=== PATIENT | female | born 1930 | race Caucasian/White ===

== ENCOUNTER 2017-05-03 13:38 | Inpatient (IN) ==
[~2017-05-03 13:38] MED LIST: *HR* Atropine Sulfate 1 MG/10 ML SYRINGE IV ONE; *HR* EPINEPHrine 1 MG/10 ML SYRINGE IVP ONE; *HR* Etomidate 20 MG/10 ML AMPUL IVP ONE; *HR* Norepinephrine 4 MG/4 ML VIAL IVC ONE; *HR* Rocuronium Bromide 100 MG/10 ML VIAL IVC ONE
[2017-05-03 14:28] LABS: Basophils # 0.1 K/mcL (0.0-0.2); Basophils % 0.6 %; Eosinophils % 0.1 %; Hematocrit 40.7 % (35.3-44.9); Immature Granulocytes % 1.1 % (0-4); Lymphocytes # 1.6 K/mcL (0.6-4.6); Lymphocytes % 16.1 %; Mean Corpuscular HGB Conc 31.9 g/dL (31.6-35.5); Mean Corpuscular Hemoglobin 28.7 pg (28.0-33.3); Mean Corpuscular Volume 89.8 fL (83.0-100.0); Mean Platelet Volume 10.5 fL (9.4-12.4); Monocytes # 0.7 K/mcL (0.0-1.3); Monocytes % 7.6 %; Neutrophils # 7.2 K/mcL (1.6-8.9); Platelet Count 171 K/mcL (140-400); Red Blood Count 4.53 M/mcL (3.82-4.97); Red Cell Distribution Width 14.6 % (11.5-14.5); Segmented Neutrophils % 74.5 %
[2017-05-03] MEDS ORDERED: Propofol 500 MG/50 ML INFUS..BTL ONE (14:31)
[2017-05-03] MEDS ORDERED: 0.9 % Sodium Chloride 1,000 ML ONE (14:38)
[2017-05-03 14:40] LABS: Calcium 8.3 mg/dL (8.6-10.3); Potassium 4.2 mEq/L (3.5-5.1)
[2017-05-03 14:47] LABS: ABG Base Excess -10 mEq/L (-2 to 3); ABG HCO3 20 mEq/L (21-27); ABG Oxygen Saturation 90 % (95-98); ABG PCO2 59 mmHg (35-45); ABG PH 7.13 pH Units (7.32-7.45); ABG PO2 77 mmHg (85-104); ABG TCO2 21 mEq/L (20-26)
--- NOTE | 2017-05-03 14:53 | Emergency Department Note ---
Disposition Clinical Impression: Respiratory distress, Hypoxia, NSTEMI (non-ST elevated myocardial infarction), Elevated brain natriuretic peptide (BNP) level Pulmonary edema Qualifiers: Chronicity: acute Qualified Code(s): J81.0 - Acute pulmonary edema Community acquired pneumonia Qualifiers: Laterality: unspecified laterality Qualified Code(s): J18.9 - Pneumonia, unspecified organism Disposition: Admitted As Inpatient Condition: Serious SOB HPI - General Chief Complaint: ED Shortness of Breath/Dyspnea Stated Complaint: respiratory distress Time Seen by Provider: 05/03/17 13:45 Source: EMS Mode of arrival: EMS Limitations: altered mental status Nursing Notes Reviewed: Yes Vital Signs Reviewed: Yes - History of Present Illness 86-year-old female known medical history presents to the ER with a chief complaint of respiratory distress. From EMS is that she has been short of breath for 2 days. She was recently out of town visiting with family. Upon arrival by EMS the patient was noted to be hypoxic at 68%. She was placed on a nonrebreather but did not improve. At the time of arrival she had received 2 DuoNeb treatments and was 71%. The patient would not answer her name but would not follow any commands or answering other questions. She was noted to be hypoxic here on a nonrebreather as well. Patient intubated for hypoxia and altered mental status. Pt Subjective Complaint: shortness of breath Onset (ago): day(s) Context: recent illness Severity: severe Consistency/Duration: constant Treatment prior to arrival: oxygen, bronchodilator Cough present: No Sputum production: No Sputum Amount: None - Related Data Home oxygen amount: none Home Medications Medication Instructions Recorded Confirmed Mildred-3/Dha/Epa/Fish Oil [Fish Oil 1,000 mg PO DAILY 05/03/17 05/03/17 1,000 mg Softgel] Allergies Allergy/AdvReac Type Severity Reaction Status Date / Time NSAIDS (Non-Steroidal Allergy Mild See Verified 05/03/17 14:27 Anti-Inflamma Comments bacitracin [From Cortisporin] Allergy See Verified 05/03/17 14:27 Comments ciprofloxacin Allergy See Verified 05/03/17 14:27 Comments clindamycin Allergy See Verified 05/03/17 14:27 Comments codeine Allergy See Verified 05/03/17 14:27 Comments dexamethasone [From Ciprodex] Allergy See Verified 05/03/17 14:27 Comments doxycycline Allergy See Verified 05/03/17 14:27 Comments fluticasone [From Flonase] Allergy See Verified 05/03/17 14:27 Comments hydrocortisone Allergy See Verified 05/03/17 14:27 [From Cortisporin] Comments meperidine [From Demerol] Allergy See Verified 05/03/17 14:27 Comments Neomycin [From Cortisporin] Allergy See Verified 05/03/17 14:27 Comments polymyxin B Allergy See Verified 05/03/17 14:27 [From Cortisporin] Comments Sulfa (Sulfonamide Allergy See Verified 05/03/17 14:27 Antibiotics) Comments arthritis medications Allergy See Uncoded 05/03/17 14:27 Comments Limitations: ROS unobtainable due to patients medical condition Past Medical History - Past Medical History Attestation: Yes The following information was validated with the patient. Source: patient Medical history: Reports: arthritis - Social History Smoking Status: Unknown if ever smoked Physical Exam - General Limitations: altered mental status General appearance: obtunded - Head Head exam: atraumatic, normocephalic - Eye Eye exam: Present: normal appearance - ENT ENT exam: normal exam - Neck Neck exam: Present: normal inspection - Chest Chest inspection: Present: normal inspection, symmetric chest wall rise - Respiratory Respiratory exam: Present: respiratory distress, other (Diffuse rales on exam) - Cardiovascular Cardiovascular exam: Present: normal rhythm, tachycardia, normal heart sounds - Abdominal Exam Abdominal exam: Present: soft, Non-Tender. Absent: tenderness, distention, rigidity - Extremities Exam Extremities exam: Present: normal inspection - Expanded Upper Extremity Exam Shoulder exam: Present: normal inspection Arm exam: Present: normal inspection Elbow exam: Present: normal inspection Forearm/Wrist exam: Present: normal inspection Hand exam: Present: normal inspection - Expanded Lower Extremity Exam Hip/Pelvis exam: Present: normal inspection Upper leg exam: Present: normal inspection Knee exam: Present: normal inspection Lower leg exam: Present: normal inspection Ankle exam: Present: normal inspection Foot/toe exam: Present: normal inspection - Neurological Exam Neurological exam: Present: other (GCS 3. Does not follow commands. Opens eyes spontaneously. ) - Skin Skin exam: Present: warm Course Course Narrative: Patient seen and examined upon arrival. Noted to be in respiratory distress and hypoxic. She was intubated due to altered mental status and hypoxia. Please see note for details. We will obtain an EKG, chest x-ray as well as labs including troponin. - Reevaluation(s) Reevaluation #1: Patient was noted to be tachycardic in the 150s here. Patient was synchronized cardioversion x 2 without any change in rhythm. Patient also with amiodarone and started on drip. We will discuss with cardiology. Reevaluation #2: Patient had central line placement due to incompatibility of multiple medications that she required. Consent was obtained from her son. - Consultations Consultation #1: I spoke with the on-call tube former operator Dr. Charles. He reports that it appears to be sinus tachycardia with bundle branch block. Consultation #2: I spoke again with Dr. Charles. Patient's troponin of 0.19. He recommends to obtain a CT scan of the head prior to heparinization and to also give 60 or 80 mg of Lasix. Vital Signs Temperature 99.0 F 05/03/17 13:39 Pulse Rate 121 05/03/17 13:39 Respiratory Rate 8 05/03/17 13:39 Blood Pressure 131/87 05/03/17 13:39 O2 Sat by Pulse Oximetry 81 05/03/17 13:39 Temperature 97.8 F 05/04/17 19:11 Pulse Rate 73 05/04/17 21:00 Respiratory Rate 22 05/04/17 21:39 Blood Pressure 117/68 05/04/17 21:39 O2 Sat by Pulse Oximetry 100 05/04/17 21:39 Oxygen Delivery Oxygen Delivery Ventilator Procedures - Central Line Placement Right IJ Central Line Inserted*: Yes Central Line Insertion: elective Consent Obtained: written consent Procedural Pause: verify patient name and date of , timeout performed per policy, assemble equipment and verify supplies, perform hand hygiene Patient Placed on Monitor/Pulse Ox: Yes During the Procedure: clinician is wearing sterile gloves, cap, mask,& gown during insertion, sterile field and sterile technique are maintained, patient's face is covered with drape or mask and wearing a cap, everyone in room is wearing a mask Central Line Prep: Chlorhexidine scrub Prep the Procedure Site: apply chloraprep to the skin using a back and forth scrubbing motion, apply chloraprep for 30 seconds (upper body), 1-2 min ( femoral sites), allow prep to dry, drape the patient with a full body drape Ultrasound Used for Placement: Yes Central Line Lumen Inserted: triple Post Procedure: sutured in place, good blood return, all ports aspirated, flushed, capped, sterile dressing applied, guide wire removed and visualized Post Procedure X-Ray: tip of catheter in good position, no pneumothorax seen Patient Tolerated Procedure: well Complications: none - Intubation Time out performed: No sedative: Etomidate Mg Given: 20 paralytic: Rocuronium Mg Given: 100 Laryngoscope: Iain ET Tube Size: 7.5 ET Tube Uncuffed: No Tube Secured Depth (cm): 22 Tube Secured Location: lips Tube Placement Confirmation: visualized tube passing through cords, equal breath sounds bilaterally, no breath sounds over epigastrium, confirmation by capnometry Patient Tolerated Procedure: well Intubation Complications: none Shortness of Breath/Dyspnea - MDM Narrative Medical decision making narrative: 86-year-old female presents to the ER in respiratory distress. Noted to be hypoxic on arrival 70% on a nonrebreather. She was alert but was not following commands. She remained hypoxic with noninvasive management. Patient was intubated for hypoxia and altered mental status. Family reports she had been sick for 2 days. She was noted to be sinus tachycardia with a bundle branch block. EKG was discussed with cardiology who recommended diuresis. Troponin also noted to be 0.19. CT scan of the head negative and started on heparin. Tap Out Operator was also consulted. CT negative for pulmonary embolism however there is multifocal consolidation of pulmonary edema versus infectious etiology. Patient was covered with vancomycin and Zosyn and Levaquin. Also diuresed with Lasix 80 mg. Admitted to the tow truck dispatcher service in critical but stable condition. - Lab Data Lab results reviewed: Yes I reviewed the patient's lab results. Result diagrams: 05/04/17 04:11 05/04/17 04:11 Lab Results 05/03/17 05/03/17 05/03/17 Range/Units 14:12 14:19 14:19 WBC 9.7 (4.3-11.1) K/mcL RBC 4.53 (3.82-4.97) M/mcL Hgb 13.0 (11.5-15.4) g/dL Hct 40.7 (35.3-44.9) % MCV 89.8 (83.0-100.0) fL MCH 28.7 (28.0-33.3) pg MCHC 31.9 (31.6-35.5) g/dL RDW 14.6 H (11.5-14.5) % Plt Count 171 (140-400) K/mcL MPV 10.5 (9.4-12.4) fL Immature Gran % 1.1 (0-4) % Seg Neutrophils % 74.5 % Lymphocytes % 16.1 % Monocytes % 7.6 % Eosinophils % 0.1 % Basophils % 0.6 % Neutrophils # 7.2 (1.6-8.9) K/mcL Lymphocytes # 1.6 (0.6-4.6) K/mcL Monocytes # 0.7 (0.0-1.3) K/mcL Eosinophils # 0.0 (0.0-0.6) K/mcL Basophils # 0.1 (0.0-0.2) K/mcL PT 13.4 H (9.4-12.1) Seconds INR 1.2 APTT 28.5 (26.0-36.0) Seconds ABG pH (7.32-7.45) pH Units ABG pCO2 (35-45) mmHg ABG pO2 (85-104) mmHg ABG HCO3 (21-27) mEq/L ABG Total CO2 (20-26) mEq/L ABG O2 Saturation (95-98) % ABG Base Excess (-2 to 3) mEq/L Sodium 132 L (136-145) mEq/L Potassium 4.2 (3.5-5.1) mEq/L Chloride 100 (98-107) mEq/L Carbon Dioxide 22 L (23-29) mEq/L BUN 21 (8-23) mg/dL Creatinine 1.18 (0.60-1.20) mg/dL Est GFR ( Amer) 53 L (> 60) Est GFR (Non-Af Amer) 43 L (> 60) BUN/Creatinine Ratio 18 (6-26) Glucose 223 H (70-105) mg/dL Calculated Osmolality 284 (280-300) Lactic Acid (0.5-2.2) mmol/L Calcium 8.3 L (8.6-10.3) mg/dL Magnesium 2.0 (1.6-2.6) mg/dL Troponin I (< 0.04) ng/mL B-Natriuretic Peptide (Less than 100) pg/mL TSH 6.115 H (0.340-5.600) mcIU/mL Urine Color (Yellow) Urine Clarity (Clear) Urine pH (5.0-8.0) pH Units Ur Specific Bryant (1.010-1.025) Urine Protein (Neg-Trace) mg/dL Urine Glucose (UA) (Normal) mg/dL Urine Ketones (Negative) mg/dL Urine Blood (Negative) Urine Nitrite (Negative) Urine Bilirubin (Negative) Urine Urobilinogen (Normal) mg/dL Ur Leukocyte Esterase (Negative) Urine Microscopic RBC (0-3) per hpf Urine Microscopic WBC (0-3) per hpf Ur Squamous Epith Cells (None-Few) per lpf Urine Bacteria (None-Few) per hpf Hyaline Casts (None-Few) per lpf Ur Culture Indicated? (NO) Person Notif of Crit 05/03/17 05/03/17 05/03/17 Range/Units 14:19 14:19 14:19 WBC (4.3-11.1) K/mcL RBC (3.82-4.97) M/mcL Hgb (11.5-15.4) g/dL Hct (35.3-44.9) % MCV (83.0-100.0) fL MCH (28.0-33.3) pg MCHC (31.6-35.5) g/dL RDW (11.5-14.5) % Plt Count (140-400) K/mcL MPV (9.4-12.4) fL Immature Gran % (0-4) % Seg Neutrophils % % Lymphocytes % % Monocytes % % Eosinophils % % Basophils % % Neutrophils # (1.6-8.9) K/mcL Lymphocytes # (0.6-4.6) K/mcL Monocytes # (0.0-1.3) K/mcL Eosinophils # (0.0-0.6) K/mcL Basophils # (0.0-0.2) K/mcL PT (9.4-12.1) Seconds INR APTT (26.0-36.0) Seconds ABG pH (7.32-7.45) pH Units ABG pCO2 (35-45) mmHg ABG pO2 (85-104) mmHg ABG HCO3 (21-27) mEq/L ABG Total CO2 (20-26) mEq/L ABG O2 Saturation (95-98) % ABG Base Excess (-2 to 3) mEq/L Sodium (136-145) mEq/L Potassium (3.5-5.1) mEq/L Chloride (98-107) mEq/L Carbon Dioxide (23-29) mEq/L BUN (8-23) mg/dL Creatinine (0.60-1.20) mg/dL Est GFR ( Amer) (> 60) Est GFR (Non-Af Amer) (> 60) BUN/Creatinine Ratio (6-26) Glucose (70-105) mg/dL Calculated Osmolality (280-300) Lactic Acid 4.6 H* (0.5-2.2) mmol/L Calcium (8.6-10.3) mg/dL Magnesium (1.6-2.6) mg/dL Troponin I 0.19 H* (< 0.04) ng/mL B-Natriuretic Peptide 4486 H (Less than 100) pg/mL TSH (0.340-5.600) mcIU/mL Urine Color (Yellow) Urine Clarity (Clear) Urine pH (5.0-8.0) pH Units Ur Specific Bryant (1.010-1.025) Urine Protein (Neg-Trace) mg/dL Urine Glucose (UA) (Normal) mg/dL Urine Ketones (Negative) mg/dL Urine Blood (Negative) Urine Nitrite (Negative) Urine Bilirubin (Negative) Urine Urobilinogen (Normal) mg/dL Ur Leukocyte Esterase (Negative) Urine Microscopic RBC (0-3) per hpf Urine Microscopic WBC (0-3) per hpf Ur Squamous Epith Cells (None-Few) per lpf Urine Bacteria (None-Few) per hpf Hyaline Casts (None-Few) per lpf Ur Culture Indicated? (NO) Person Notif of Crit 05/03/17 05/03/17 05/03/17 Range/Units 14:42 15:12 16:50 WBC (4.3-11.1) K/mcL RBC (3.82-4.97) M/mcL Hgb (11.5-15.4) g/dL Hct (35.3-44.9) % MCV (83.0-100.0) fL MCH (28.0-33.3) pg MCHC (31.6-35.5) g/dL RDW (11.5-14.5) % Plt Count (140-400) K/mcL MPV (9.4-12.4) fL Immature Gran % (0-4) % Seg Neutrophils % % Lymphocytes % % Monocytes % % Eosinophils % % Basophils % % Neutrophils # (1.6-8.9) K/mcL Lymphocytes # (0.6-4.6) K/mcL Monocytes # (0.0-1.3) K/mcL Eosinophils # (0.0-0.6) K/mcL Basophils # (0.0-0.2) K/mcL PT (9.4-12.1) Seconds INR APTT (26.0-36.0) Seconds ABG pH 7.13 L* 7.19 L* (7.32-7.45) pH Units ABG pCO2 59 H 59 H (35-45) mmHg ABG pO2 77 L 65 L (85-104) mmHg ABG HCO3 20 L 23 (21-27) mEq/L ABG Total CO2 21 24 (20-26) mEq/L ABG O2 Saturation 90 L 87 L (95-98) % ABG Base Excess -10 L -6 L (-2 to 3) mEq/L Sodium (136-145) mEq/L Potassium (3.5-5.1) mEq/L Chloride (98-107) mEq/L Carbon Dioxide (23-29) mEq/L BUN (8-23) mg/dL Creatinine (0.60-1.20) mg/dL Est GFR ( Amer) (> 60) Est GFR (Non-Af Amer) (> 60) BUN/Creatinine Ratio (6-26) Glucose (70-105) mg/dL Calculated Osmolality (280-300) Lactic Acid (0.5-2.2) mmol/L Calcium (8.6-10.3) mg/dL Magnesium (1.6-2.6) mg/dL Troponin I (< 0.04) ng/mL B-Natriuretic Peptide (Less than 100) pg/mL TSH (0.340-5.600) mcIU/mL Urine Color Yellow (Yellow) Urine Clarity Turbid A (Clear) Urine pH 6.0 (5.0-8.0) pH Units Ur Specific Bryant 1.021 (1.010-1.025) Urine Protein 100 H (Neg-Trace) mg/dL Urine Glucose (UA) Normal (Normal) mg/dL Urine Ketones Negative (Negative) mg/dL Urine Blood Large H (Negative) Urine Nitrite Negative (Negative) Urine Bilirubin Negative (Negative) Urine Urobilinogen Normal (Normal) mg/dL Ur Leukocyte Esterase Moderate H (Negative) Urine Microscopic RBC 30-50 H (0-3) per hpf Urine Microscopic WBC TNTC H (0-3) per hpf Ur Squamous Epith Cells Many H (None-Few) per lpf Urine Bacteria Many H (None-Few) per hpf Hyaline Casts None Seen (None-Few) per lpf Ur Culture Indicated? NO (NO) Person Notif of Baldemar MCMAHAN - Radiology Data Radiology results reviewed: Yes I reviewed the patient's radiology results. Head CT 05/03/17 14:56 IMPRESSION: No acute intracranial abnormality. D/ / Dominguez Cabrera MD / Dominguez Cabrera MD Interpreting Provider: Dominguez Cabrera MD Chest CTA 05/03/17 15:12 IMPRESSION: 1. No evidence of pulmonary embolic disease. 2. Consolidation within the lower lobes as well as the dependent right upper lobe. Suspected pulmonary edema within the right upper lobe and left perihilar upper lobe. Bilateral pleural effusions. Differential considerations include CHF, ARDS, pulmonary hemorrhage or pneumonia. 3. Cardiomegaly with marked enlargement of the left atrium and ventricle. D/ 05/03/2017 16:00:38 Roe Girard MD / [facility] Interpreting Provider: Roe Girard MD Chest X-Ray 05/04/17 06:00 IMPRESSION: Improving bilateral pneumonia. D/ / Gavino Monroy MD / Gavino Monroy MD Interpreting Provider: Gavino Monroy MD - EKG Data EKG attestation: Yes I reviewed and interpreted this EKG. EKG results narrative: EKG demonstrates sinus tachycardia with left bundle branch block with a rate of 140s. Left axis deviation. Nonspecific ST-T wave changes in the inferior and lateral leads. No gross ST elevations or depressions. No acute ischemic findings. Critical Care Time Critical Care Time: Yes Total Critical Care Time: 60 Attestation: I examined this patient and my medical decision-making was reviewed with the Resident Physician, Dr. Ann. I agree with the documented findings, disposition and treatment plan as described except to the extent set forth below. Pt is an 86 yo wf, brought in by EMS in resp failure to the ED. Pt received aerosols x 2 and on NRB mask/100%FiO2 on arrival. Pt hypoxic in the 70's, with incr work of breathing and verbally unresponsive. GCS=3 on arrival, and made plans to immediately intubate pt. Pt with gurgling respirations, and auscultation of lungs with b/l rhonchi. No additional hx due to altered MS, and no relatives on arrival to ED. I agree with PE findings as documented. Pt in extremis on arrival, and required immediate intubation. Please see procedure note for details. Pt intubated without complication, ETT placement verified and PCXR obtained for placement. Pt with low O2 sats after intubation, no PTX on CXR, but shows diffuse pulm edema, and suspicious for RUL infiltrate. Pt requiring frequent suctioning of fluids from ETT following placement. Labs pending, EKG shows BBB pattern with tachycardia. Old EKG shows BBB, so not new finding. Pt became increasingly tachycardic, and unresponsive despite no immediate IV sedation. HR 160's-170's. Decided due to unstable condition we would attempt cardioversion. Pt cardioverted x 2 with minimal response with HR into 120-130's which was only transient. Initiated amiodarone gtt. BP remained stable throughout. Son arrived to ED, and per son, declined any significant heart hx, no prior CHF , no hx lung ds, and no URI/cough sxs at home over past 2 days. Only report was that she was "not feeling well", with dec activity and nausea. Pt then suddenly with worsening SOB over past few hours prior to calling 911. At this time, son wants everything done, full code confirmed. Explained critical status and admission to ICU. Pt with elev trop in setting of DEN, provided ASA, lasix and heparin (after neg head CT), obtained sepsis workup as well, but held IVF due to pulm edema and b/ l pleural effusions. Lactate elev. Blood cultures obtained and empiric antibx initiated for possible pulm infection. Difficult to determine course of events leading to such critical presenting status. Central R IJ placed during course of care to accomodate multiple meds IV, consent provided by son. Please see proc note, placement confirmed with CXR, and no complications. Case d/w Cardiology, who evaluated pt in eD, and agreed with current management , and CTA chest. Case d/w Tap Out Operator, who evaluated pt in ED and agrees with management of pulm infection vs edema (also elev BNP). Pt admitted to ICU, accepted by tow truck dispatcher. Pt improved, but remains in critical condition. Results up to this point d/w family. S.B.A.R. - S.B.A.R. Situation: Demographics, MOA Background: Presenting Complaint, Relevant PMH, Meds, & Allergies Assessment: Vital Signs, Course and respsone to treatment, Exam Concerns, Patient/Family Expectation, Pertinant Lab Results Recommendation: Barrier(s) to disposition, Recommendation based on pending studies, treatments, or consults S.B.A.R. Report Given to: Dr. Yousif
[2017-05-03] MEDS: Propofol 500 MG/50 ML INFUS..BTL IVC SCH (14:59)
[2017-05-03 15:21] LABS: Thyroid Stimulating Hormone 6.115 mcIU/mL (0.340-5.600)
[2017-05-03 15:21] LABS: Bilirubin,Urine Negative (Negative); Blood,Urine Large (Negative); Clarity,Urine Turbid (Clear); Color,Urine Yellow (Yellow); Glucose,Urine (UA) Normal (Normal); Ketones,Urine Negative (Negative); Leukocyte Esterase,Urine Moderate (Negative); Nitrite,Urine Negative (Negative); Protein,Urine 100 mg/dL (Neg-Trace); Specific Gravity,Urine 1.021 (1.010-1.025); Urobilinogen,Urine Normal (Normal)
[2017-05-03 15:24] LABS: Bacteria,Urine Many per hpf (None-Few); Hyaline Casts,Urine None Seen per lpf (None-Few); RBC,Urine 30-50 per hpf (0-3); Squamous Epithelial Cell,Urine Many per lpf (None-Few); WBC,Urine TNTC per hpf (0-3)
[2017-05-03] MEDS ORDERED: Vancomycin 1,000 MG in D5% in Water 250 ML IVPB ONE (15:28)
[2017-05-03] MEDS ORDERED: Levofloxacin 750 MG/150 ML 750 MG/150 ML BAG IVPB ONE (15:28)
--- NOTE | 2017-05-03 15:28 | Cardiology Consult Note ---
Addendum entered and electronically signed by Major Norman CNP 05/03/17 16:08 : CT head was negative. Discussed with Dr. Charles, start heparin gtt per ACS protocal. CTA negative for PE. Bilateral consolidation and pleural effusion. Pulmonary edema. Continue IV diuretic. Original Note: <Major Norman - Last Filed: 05/03/17 15:23> Date of Encounter: 05/03/17 Time of Encounter: 15:23 Assessment and Plan (1) Respiratory distress Current Visit: Yes Status: Acute Acute hypoxic respiratory distress. Findings concerning for acute on chronic systolic CHF. No significant fluid overload on exam. CXR showed bilateral pulmonary infiltrates and small bilateral pleural effusion. IV lasix. Recommend r/o PE/ PNA with CTA (2) Elevated troponin Current Visit: Yes Status: Acute Troponin 0.19. NSTEMI vs demand ischemia in the setting of acute hypoxic respiratory distress. Continue to trend troponin. Check TTE. Check CTA to r/o PE. CT head pending. If no acute bleeding start IV heparin gtt. Known h/o CAD with medication non-compliance? Start asa, statin , and bb when able to take oral. Possible LHC pending further work-up. (3) CAD (coronary artery disease) Current Visit: Yes Status: Acute LHC 05/08/2013 showed 60% mLAD stenosis with FFR 0.82. Normal LVEDP. Recommend asa, statin, and bb. Possible LHC during hospital stay to re- evaluate. Qualifiers: Coronary Disease-Associated Artery/Lesion type: [place] artery [place] vs. transplanted heart: [place] heart Associated angina: without angina Qualified Code(s): I25.10 - Atherosclerotic heart disease of [place] coronary artery without angina pectoris (4) Systolic CHF Current Visit: Yes Status: Acute Known cardiomyopathy. EF 20-25% in 2014. Poor f/u. IV lasix. Strict I&O and daily weights. restart beta lisa. Add AceI if tolerating. Qualifiers: Congestive heart failure chronicity: acute on chronic Qualified Code(s): I50.23 - Acute on chronic systolic (congestive) heart failure (5) LBBB (left bundle branch block) Current Visit: Yes Status: Acute H/o LBBB seen in 2013. Discussion w patient/family: The assessment and plan as outlined above was discussed with the patient and/or family members who expressed understanding and agreement. All questions were answered. Thank you for involving us in the care of your patient. Please call with any questions. History of Present Illness Consult date: 05/03/17 Requesting physician: Nelson Ann Consult reason: elevated troponin Chief complaint: Respiratory distress History of present illness: Ms. Hewitt is a 86 year old female with a history of non-ischemic cardiomyopathy , moderate non-obstructive CAD, LBBB, and HTN. She presented to the ER with respiratory distress. On my exam patient is intubated. No family at bedside. I discussed presentation with the ER team. Patient son reported she was making gurgling sounds and not breathing well. Spo2 on arrival was 68%. Patient was initially answering her name but no other conversation. She did become unresponsive and was intubated. CXR showed diffuse bilateral pulmonary infiltrates and small bilateral pleural effusions. ER physician concerned for possible aspiration. Her EKG showed ST with LBBB, she initially was though to have VT and did receive defibrillation with no response and was started on amiodarone. Old EKG reviewed and showed patient has history of LBBB. She continues to have sinus tachycardia with HR 130-150. According to review of old records in [facility] patient seen in 2013 for diagnosis of new non-ischemic cardiomyopathy. She underwent LHC at that time that showed mLAD 60% stenosis with fractional flow reserve value of 0.82. medical management was recommended. She did not follow with cardiology since that time. According to son on presentation and out patient records patient was also not taking recommended medications. Past Med Surg Social Fam HX - Past Medical History Medical history: arthritis, cardiomyopathy, coronary artery disease, hypertension - Social History Smoking Status: Unknown if ever smoked Medications and Allergies 3 Allergy/AdvReac Type Severity Reaction Status Date / Time NSAIDS (Non-Steroidal Allergy Mild See Verified 05/03/17 14:27 Anti-Inflamma Comments bacitracin [From Cortisporin] Allergy See Verified 05/03/17 14:27 Comments ciprofloxacin Allergy See Verified 05/03/17 14:27 Comments clindamycin Allergy See Verified 05/03/17 14:27 Comments codeine Allergy See Verified 05/03/17 14:27 Comments dexamethasone [From Ciprodex] Allergy See Verified 05/03/17 14:27 Comments doxycycline Allergy See Verified 05/03/17 14:27 Comments fluticasone [From Flonase] Allergy See Verified 05/03/17 14:27 Comments hydrocortisone Allergy See Verified 05/03/17 14:27 [From Cortisporin] Comments meperidine [From Demerol] Allergy See Verified 05/03/17 14:27 Comments Neomycin [From Cortisporin] Allergy See Verified 05/03/17 14:27 Comments polymyxin B Allergy See Verified 05/03/17 14:27 [From Cortisporin] Comments Sulfa (Sulfonamide Allergy See Verified 05/03/17 14:27 Antibiotics) Comments arthritis medications Allergy See Uncoded 05/03/17 14:27 Comments All Systems Review: A 10-system review of systems was performed and is negative for pertinent findings except as documented above in the HPI. Physical Examination Vital Signs, Last 4 Hours Temp Pulse Resp BP Pulse Ox 05/03/17 14:47 142 16 142/85 91 05/03/17 14:20 14 140/88 84 05/03/17 14:15 151 14 140/88 83 05/03/17 14:08 146 13 142/87 83 05/03/17 13:59 154 16 141/82 80 05/03/17 13:54 83 05/03/17 13:39 99.0 F 121 8 131/87 81 General: Other (intubated and sedated) HEENT: Mucus Membranes Moist, Other (ET tube intact) Neck: No JVD Cardiac: Other (apical regular, no murmur noted) Lungs: Other (respirations unlabored on ventilator, lung sounds diminished. ) Neuro: Other (sedated) Abdomen: Soft, Non-Tender Skin: No rashes noted on visualized skin Musculoskeletal: No Chest Wall Tenderness Extremities: No Clubbing, No Cyanosis, No Edema, Normal Pulses Other: Gabriel catheter with clear yellow urine. Results 05/03/17 14:19 05/03/17 14:19 Lab Results 05/03/17 05/03/17 05/03/17 14:19 14:19 14:19 WBC 9.7 Hgb 13.0 Hct 40.7 Plt Count 171 Sodium 132 L Potassium 4.2 Chloride 100 Carbon Dioxide 22 L BUN 21 Creatinine 1.18 Glucose 223 H Calcium 8.3 L Magnesium 2.0 Troponin I 0.19 H* B-Natriuretic Peptide TSH 6.115 H 05/03/17 14:19 WBC Hgb Hct Plt Count Sodium Potassium Chloride Carbon Dioxide BUN Creatinine Glucose Calcium Magnesium Troponin I B-Natriuretic Peptide 4486 H TSH Chest X-Ray 05/03/17 13:51 IMPRESSION: Diffuse bilateral pulmonary infiltrates. Small bilateral effusions. Endotracheal tube tip above the thoracic inlet. Suggest advancement approximately 4 cm. Satisfactory position of nasogastric tube. D/ / Roe Girard MD / Roe Girard MD Interpreting Provider: Roe Girard MD - Imaging and Cardiology Chest Xray: report reviewed Echo: pending - EKG Interpretation EKG results cardiology: personally reviewed (ST with LBBB, HR 141) Consult Discharge Plan - Plan Referrals: Paco Louise Jr, MD [Primary Care Provider] - <Luis Fernando Charles - Last Filed: 05/04/17 12:26> Date of Encounter: 05/04/17 Time of Encounter: 11:00 - Attending Attestation I have personally performed a face to face evaluation on this patient. I have reviewed and agree with the care plan. History and Exam by me shows: IMP: 1. Pneumonia: complicated with respiratory failure, vent dependent, on triple antibiotic coverage 2. Acute on chronic systolic heart failure, improved with gentle diuresis, due to non-ischemic cardiomyopathy, severe, echo shows EF 15% down from 20-25%, global hypokinesis, 3. CAD - moderate, LAD 60% stenosis with FFR .82, 2015, troponin minimally elevaeted at .19, suspect due to demand ischemia provoked by sepsis. 4. Abnormal EKG: LBBB, old, no significant change since 2014. 5. Sinus tach: heartrate proportional to metabolic demands, would not decrease pharmocologically, needs tachycardia to meet metabolic demands. 6. hypertension: controlled off meds, not clear was taking medications as prescribed at home, appears non-compliant with diet, medications, and follow up appts. Assessment and Plan Discussion w patient/family: The assessment and plan as outlined above was discussed with the patient and/or family members who expressed understanding and agreement. All questions were answered. Thank you for involving us in the care of your patient. Please call with any questions. History of Present Illness History of present illness: Ms. Hewitt is a 86 year old female Past Med Surg Social Fam HX - Family History Mother Living Status: Father Living Status: All Systems Review: A 10-system review of systems was performed and is negative for pertinent findings except as documented above in the HPI. Physical Examination Vital Signs, Last 4 Hours Temp Pulse Resp BP Pulse Ox 05/04/17 11:45 61 05/04/17 11:37 23 95 05/04/17 11:36 97.4 F L 05/04/17 11:00 72 23 120/76 95 05/04/17 10:00 81 23 139/80 97 05/04/17 09:29 23 120/77 95 05/04/17 09:00 71 23 118/70 96 Results 05/04/17 04:11 05/04/17 04:11 Lab Results 05/03/17 05/03/17 05/03/17 18:04 20:30 23:50 WBC Hgb Hct Plt Count APTT Sodium 131 L Potassium 3.1 L D Chloride 96 L Carbon Dioxide 19 L BUN 26 H Creatinine 1.72 H Glucose 319 H Calcium 7.2 L Magnesium 1.8 Troponin I 0.85 H* 1.47 H* 05/03/17 05/04/17 05/04/17 23:50 04:11 04:11 WBC 19.0 H D Hgb 12.0 Hct 36.2 Plt Count 151 APTT 169.2 H* D Sodium 127 L Potassium 3.9 D Chloride 96 L Carbon Dioxide 20 L BUN 29 H Creatinine 2.01 H Glucose 184 H Calcium 7.8 L Magnesium 2.2 Troponin I 05/04/17 05/04/17 06:10 11:42 WBC Hgb Hct Plt Count APTT 150.5 H* 51.3 H D Sodium Potassium Chloride Carbon Dioxide BUN Creatinine Glucose Calcium Magnesium Troponin I
[2017-05-03] MEDS ORDERED: Piperacillin/Tazobactam 3.375 GM in Water for inj. (sterile) 20 ML IVP ONE (15:29)
[2017-05-03] MEDS: Furosemide 80 MG in 0.9 % Sodium Chloride 50 ML IVPB ONE ×2 (15:44→20:06)
[2017-05-03] MEDS ORDERED: *HR* Metoprolol 5 MG/5 ML VIAL IVP PRN (16:00)
[2017-05-03] MEDS ORDERED: *HR* Heparin 5,000 UNIT/ML VIAL IVP PRN ×2 (16:08)
[2017-05-03] MEDS ORDERED: *HR* Heparin 5,000 UNIT/ML VIAL IVP ONE (16:08)
[2017-05-03 16:25] LABS: INR 1.2; Prothrombin Time 13.4 Seconds (9.4-12.1)
[2017-05-03 16:27] LABS: Activated Partial Thrombo Time 28.5 Seconds (26.0-36.0)
[2017-05-03] MEDS: Heparin 25,000 UNIT/500 ML D5W 25,000 UNIT/500 ML BAG IVC SCH ×2 (16:51→20:06)
[2017-05-03 16:56] LABS: ABG Base Excess -6 mEq/L (-2 to 3); ABG HCO3 23 mEq/L (21-27); ABG Oxygen Saturation 87 % (95-98); ABG PCO2 59 mmHg (35-45); ABG PH 7.19 pH Units (7.32-7.45); ABG PO2 65 mmHg (85-104); ABG TCO2 24 mEq/L (20-26)
[2017-05-03] MEDS ORDERED: Naloxone 0.4 MG/ML INJ IVP PRN (17:10)
[2017-05-03] MEDS ORDERED: Lacri-Lube 3.5 GM TUBE BOTH EYES PRN (17:21)
[2017-05-03] MEDS ORDERED: MethylPREDNISolone 40 MG/ML VIAL IVP ONE ×2 (17:24→18:30)
[2017-05-03] MEDS ORDERED: D5% in Water 1,000 ML IVC PRN (17:32)
[2017-05-03] MEDS ORDERED: Dextrose Gel 15 GM/37.5 ML TUBE PO PRN ×2 (17:32)
[2017-05-03] MEDS ORDERED: *HR* Dextrose 50 % in Water (Syg) 50 ML SYRINGE IVP PRN (17:32)
--- NOTE | 2017-05-03 17:38 | Pulmonology History & Physical ---
<SushantarnelapoorvadesireeMartin - Last Filed: 05/03/17 17:50> Date of Encounter: 05/03/17 Time of Encounter: 17:38 Assessment and Plan (1) Acute respiratory failure with hypoxia and hypercapnia Current visit: Yes Status: Acute Patient with Acute respiratory failure with hypoxia and hypercapnia likely 2/2 to PNA patient given Vanc, zosyn, and levaquin in ED Patient started on Ceftriaxone,a nd azithromycin in the ICU. CXR: "Diffuse bilateral pulmonary infiltrates. Small bilateral effusions." CTA: "1. No evidence of pulmonary embolic disease. 2. Consolidation within the lower lobes as well as the dependent right upper lobe. Suspected pulmonary edema within the right upper lobe and left perihilar upper lobe. Bilateral pleural effusions. Differential considerations include CHF, ARDS, pulmonary hemorrhage or pneumonia" Plan: Continue Mechanical ventilation continue abx. ween sedation as able Respiratory flu panel ordered sputum cx ordered Continue to monitor (2) Severe sepsis Current visit: Yes Status: Acute Patient met criteria for severe sepsis based on lactic acid of 4.6, tachycardia , acute respiratory failure patient had CVC placed in the ED BCx drawn in the ED patient given vanc, zosyn, levaquin in the ED Patient given albumin in the ICU Plan: repeat LA 5 hours after initial drawn. continue to monitor Continue abx Respiratory flu panel ordered sputum cx ordered (3) Community acquired pneumonia Current visit: Yes Status: Acute Pt likely with CAP CT chest showed multifocal consolidations in both lungs Patient received Vanc, zosyn, levaquin in the ED. patient started on Ceftriaxone, and Azithromycin in the ICU Patient required Intubation 2/2 hypoxia Plan: Continue abx. Continue to monitor, CBC, Lactic Acid Respiratory flu panel ordered sputum cx ordered Qualifiers: Laterality: unspecified laterality Qualified Code(s): J18.9 - Pneumonia, unspecified organism (4) Acute encephalopathy Current visit: Yes Status: Acute Likely secondary to hypoxia and Sepsis Patient sating at 68% on non re breather upon arrival required intubation. Patient only responded briefly to her name, would not follow commands per ED team. Patient intubated and sedated upon my examination. CT head showed no acute process. Plan: Continue to monitor Ween sedation as able. Continue abx and sepsis treatment. (5) Reduced ejection fraction concurrent with and due to acute on chronic heart failure Current visit: Yes Status: Acute patient with acute on chronic CHF with reduced EF EF 20-25% in 2014 Poor follow up/ compliance. Patient not on ASA, BB, Statin at home Cardiology is on board Plan: ECHO ordered Cardiology following. Appreciate and recommendations. Will look to start CHF medications once off vent. (6) Elevated troponin Current visit: Yes Status: Acute likely secondary to demand ischemia patient with acute on chronic CHF with reduced EF Patient on heparin drip due to concern of possible NSTEMI per cardiology's recs. Trop 0.19 on admission Plan: trend trops Scheduled for ECHO continue heparin drip Cardiology on board for further work up and management. (7) Tachycardia Current visit: Yes Status: Acute likely secondary to sepsis and heart failure Patient with known chronic LBBB Cardiology is on board. Patient received synchronized, and unsynchronized caridoversion and amiodarone drip, but patient remains tachycardic Plan: continue to monitor continue to follow cardiology's recommendations. (8) Lactic acid acidosis Current visit: Yes Status: Acute Secondary to Severe Sepsis LA 4.6 upon admission Plan: See Severe Sepsis for plan History of Present Illness Chief complaint: Acute Respiratory failure HPI: Ms. Hewitt is a 86 yo F c PMHx of non ischemic cardiomyopathy with EF 20-25% in 2014, CAD LHC in 2014 showed 60% mLAD stenosis, LBBB, and HTN admitted for acute hypercapnic hypoxic respiratory failure likely 2/2 to community acquired pneumonia. Patient also suffering from acute encephalopathy, severe sepsis, Tachycardia, troponin elevation, and lactic acidosis. Patient had cough past two days but became acutely sick today. Found to be hypoxic to 68% upon arrival. Pt required intubation. Patient was tachy with LBBB. ED attempted synchronized then unsynchronized cardioversion. Patient started on amiodarone drip. Patient remained tachycardic despite these interventions. ICU was consulted for admission and accepted the patient adjusting patients vent settings. Patient received Vanc, zosyn, Levaquin in ED. De-escalated to ceftriaxone and Azithromycin in the ICU. Past Med Surg Social Fam HX - Past Medical History Medical history: arthritis - Social History Smoking Status: Unknown if ever smoked Medications and Allergies [place]-3/Dha/Epa/Fish Oil [Fish Oil 1,000 mg Softgel] 1,000 mg PO DAILY 05/03/17 [History] 3 Allergy/AdvReac Type Severity Reaction Status Date / Time NSAIDS (Non-Steroidal Allergy Mild See Verified 05/03/17 14:27 Anti-Inflamma Comments bacitracin [From Cortisporin] Allergy See Verified 05/03/17 14:27 Comments ciprofloxacin Allergy See Verified 05/03/17 14:27 Comments clindamycin Allergy See Verified 05/03/17 14:27 Comments codeine Allergy See Verified 05/03/17 14:27 Comments dexamethasone [From Ciprodex] Allergy See Verified 05/03/17 14:27 Comments doxycycline Allergy See Verified 05/03/17 14:27 Comments fluticasone [From Flonase] Allergy See Verified 05/03/17 14:27 Comments hydrocortisone Allergy See Verified 05/03/17 14:27 [From Cortisporin] Comments meperidine [From Demerol] Allergy See Verified 05/03/17 14:27 Comments Neomycin [From Cortisporin] Allergy See Verified 05/03/17 14:27 Comments polymyxin B Allergy See Verified 05/03/17 14:27 [From Cortisporin] Comments Sulfa (Sulfonamide Allergy See Verified 05/03/17 14:27 Antibiotics) Comments arthritis medications Allergy See Uncoded 05/03/17 14:27 Comments ROS unobtainable: due to endotracheal tube All Systems: A 10-system review of systems was performed and is negative for pertinent findings except as documented above in the HPI. Physical Examination Vital Signs: Vital Signs, Last 4 Hours Resp BP 05/03/17 17:26 16 124/64 General appearance: other (sedated due to intubation) Eyes: nonicteric ENT: oropharynx moist Neck: supple Effort: other (Intubated on sedation, coarse breath soudns through out) Auscultation: bilateral: rhonchi Cardiovascular: other (Tachycardic) Gastrointestinal: normoactive bowel sounds, soft, non-tender, non-distended Integumentary: normal Musculoskeletal: no deformities unable to assess due to mental status Results - Laboratory Findings CBC and BMP: 05/03/17 14:19 05/03/17 14:19 ABG ABG pH 7.19 pH Units (7.32-7.45) L* 05/03/17 16:50 ABG pCO2 59 mmHg (35-45) H 05/03/17 16:50 ABG pO2 65 mmHg (85-104) L 05/03/17 16:50 ABG O2 Saturation 87 % (95-98) L 05/03/17 16:50 PT/INR, D-dimer PT 13.4 Seconds (9.4-12.1) H 05/03/17 14:12 Abnormal lab findings: Abnormal lab results RDW 14.6 % (11.5-14.5) H 05/03/17 14:19 PT 13.4 Seconds (9.4-12.1) H 05/03/17 14:12 ABG pH 7.19 pH Units (7.32-7.45) L* 05/03/17 16:50 ABG pCO2 59 mmHg (35-45) H 05/03/17 16:50 ABG pO2 65 mmHg (85-104) L 05/03/17 16:50 ABG O2 Saturation 87 % (95-98) L 05/03/17 16:50 ABG Base Excess -6 mEq/L (-2 to 3) L 05/03/17 16:50 Sodium 132 mEq/L (136-145) L 05/03/17 14:19 Carbon Dioxide 22 mEq/L (23-29) L 05/03/17 14:19 Est GFR ( Amer) 53 (> 60) L 05/03/17 14:19 Est GFR (Non-Af Amer) 43 (> 60) L 05/03/17 14:19 Glucose 223 mg/dL (70-105) H 05/03/17 14:19 POC Glucose 161 (58-89) H 05/03/17 17:30 Lactic Acid 4.6 mmol/L (0.5-2.2) H* 05/03/17 14:19 Calcium 8.3 mg/dL (8.6-10.3) L 05/03/17 14:19 Troponin I 0.19 ng/mL (< 0.04) H* 05/03/17 14:19 B-Natriuretic Peptide 4486 pg/mL (Less than 100) H 05/03/17 14:19 TSH 6.115 mcIU/mL (0.340-5.600) H 05/03/17 14:19 Urine Clarity Turbid (Clear) A 05/03/17 15:12 Urine Protein 100 mg/dL (Neg-Trace) H 05/03/17 15:12 Urine Blood Large (Negative) H 05/03/17 15:12 Ur Leukocyte Esterase Moderate (Negative) H 05/03/17 15:12 Urine Microscopic RBC 30-50 per hpf (0-3) H 05/03/17 15:12 Urine Microscopic WBC TNTC per hpf (0-3) H 05/03/17 15:12 Ur Squamous Epith Cells Many per lpf (None-Few) H 05/03/17 15:12 Urine Bacteria Many per hpf (None-Few) H 05/03/17 15:12 <Scar Doshi W - Last Filed: 05/03/17 19:40> Date of Encounter: 05/03/17 History of Present Illness HPI: Ms. Hewitt is a 86 year old female Past Med Surg Social Fam HX - Family History Mother Living Status: Father Living Status: All Systems: A 10-system review of systems was performed and is negative for pertinent findings except as documented above in the HPI. Physical Examination Vital Signs: Vital Signs, Last 4 Hours Resp BP 05/03/17 17:26 16 124/64 Results - Laboratory Findings CBC and BMP: 05/03/17 14:19 05/03/17 14:19 ABG ABG pH 7.19 pH Units (7.32-7.45) L* 05/03/17 16:50 ABG pCO2 59 mmHg (35-45) H 05/03/17 16:50 ABG pO2 65 mmHg (85-104) L 05/03/17 16:50 ABG O2 Saturation 87 % (95-98) L 05/03/17 16:50 PT/INR, D-dimer PT 13.4 Seconds (9.4-12.1) H 05/03/17 14:12 Abnormal lab findings: Abnormal lab results RDW 14.6 % (11.5-14.5) H 05/03/17 14:19 PT 13.4 Seconds (9.4-12.1) H 05/03/17 14:12 ABG pH 7.19 pH Units (7.32-7.45) L* 05/03/17 16:50 ABG pCO2 59 mmHg (35-45) H 05/03/17 16:50 ABG pO2 65 mmHg (85-104) L 05/03/17 16:50 ABG O2 Saturation 87 % (95-98) L 05/03/17 16:50 ABG Base Excess -6 mEq/L (-2 to 3) L 05/03/17 16:50 Sodium 132 mEq/L (136-145) L 05/03/17 14:19 Carbon Dioxide 22 mEq/L (23-29) L 05/03/17 14:19 Est GFR ( Amer) 53 (> 60) L 05/03/17 14:19 Est GFR (Non-Af Amer) 43 (> 60) L 05/03/17 14:19 Glucose 223 mg/dL (70-105) H 05/03/17 14:19 POC Glucose 161 (58-89) H 05/03/17 17:30 Lactic Acid 4.6 mmol/L (0.5-2.2) H* 05/03/17 14:19 Calcium 8.3 mg/dL (8.6-10.3) L 05/03/17 14:19 Troponin I 0.19 ng/mL (< 0.04) H* 05/03/17 14:19 B-Natriuretic Peptide 4486 pg/mL (Less than 100) H 05/03/17 14:19 TSH 6.115 mcIU/mL (0.340-5.600) H 05/03/17 14:19 Urine Clarity Turbid (Clear) A 05/03/17 15:12 Urine Protein 100 mg/dL (Neg-Trace) H 05/03/17 15:12 Urine Blood Large (Negative) H 05/03/17 15:12 Ur Leukocyte Esterase Moderate (Negative) H 05/03/17 15:12 Urine Microscopic RBC 30-50 per hpf (0-3) H 05/03/17 15:12 Urine Microscopic WBC TNTC per hpf (0-3) H 05/03/17 15:12 Ur Squamous Epith Cells Many per lpf (None-Few) H 05/03/17 15:12 Urine Bacteria Many per hpf (None-Few) H 05/03/17 15:12 - Attending Attestation I examined this patient and my medical decision-making was reviewed with the Resident Physician. I agree with the documented findings, disposition and treatment plan as described except to the extent set forth below. We independently had [id number] contact with the patient I spent 35min of Critical Care time with this patient. It involved decision making of high complexity to assess, manipulate, and support vital organ system failure and/or to prevent further life threatening deterioration of the patient' s condition. The time involved in the performance of separately reportable procedures was not counted toward critical care time. Patient seen and examined at bedside Labs, radiology, chart personally reviewed. Management was reviewed during multidisciplinary critical care rounds. 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 CT without pulmonary embolus Cards: Troponin elevation possible ACS but I suspect demand ischemia in the context of likely pneumonia and hypoxic respiratory failure seen by cardiology their concern for decompensated heart failure blood pressure remains stable patient is receiving ACS protocol including heparin infusion and aspirin. Concern for tachyarrhythmia and was started on amiodarone in the ED this could likely be stopped further next 12 hours pending cardiology evaluation. Trend troponin echocardiogram pending FEN-GI: Nothing by mouth for now prophylaxis given Renal: Unclear creatinine baseline appears slightly elevated we will continue to trend this no evidence of hyperkalemia continue to monitor urine output ID: Concern for severe sepsis related to pneumonia with elevated lactate we are avoiding aggressive volume resuscitation per guidelines because of underlying cardiac dysfunction we will start with 5% albumin bolus of 500 mL cc and reevaluate repeat lactate pending. Ultrasound been obtained antibiotics given de-escalate based upon sensitivities. Currently greater than 65 Heme/Onc: Unhampered infusion for ACS Endo: Glucose Monitored supplemental insulin per sliding scale given Integ/MSK: Skin Care per routine ICU Nursing Protocol to prevent ulcers. Lines: All lines examined without evidence of infection : Dispo: Remain ICU for critical illness CODE: Discussed the case with her son and healthcare proxy Christiano Hewitt and explained that overall risk of mortality for his mother is high. At this time she remains full code per her request however based upon clinical course sentences that other would not want heroic measures if there is no hope for recovery. I explained that next 24-48 hours be crucial for her mother's overall survival and prognosis at this time is guarded at best. All questions answered and the son expressed understanding of our discussion including the risk of morbidity/mortality with cardiopulmonary resuscitation and elevated woman with severity of underlying cardiomyopathy. The patient is unable or incompetent to participate in giving a history and/or making treatment decisions. The discussion was necessary for determining treatment decision. This discussion took place in the [ED]. The total meeting time was [20min]
[2017-05-03] MEDS ORDERED: Azithromycin 500 MG in D5% in Water 250 ML IVPB SCH (18:00)
[2017-05-03 18:04] LABS: ABG Base Excess -7 mEq/L (-2 to 3); ABG HCO3 20 mEq/L (21-27); ABG Oxygen Saturation 89 % (95-98); ABG PCO2 45 mmHg (35-45); ABG PH 7.26 pH Units (7.32-7.45); ABG PO2 65 mmHg (85-104); ABG TCO2 21 mEq/L (20-26)
[2017-05-03] MEDS: FentaNYL (PF) 1,000 MCG in 0.9 % Sodium Chloride 80 ML IVC SCH (18:06)
[2017-05-03] MEDS: Dexmedetomidine HCl 400 MCG/100 ML MLS IVC SCH (18:22)
[2017-05-03] MEDS: cefTRIAXone 1,000 MG in Water for inj. (sterile) 20 ML 10 ML IVP SCH (18:23)
[2017-05-03] MEDS: Pantoprazole 40 MG VIAL IVPB SCH (18:32)
[2017-05-03] MEDS: Insulin LISPRO 300 UNITS/3 ML VIAL SQ SCH ×2 (18:33→23:33)
[2017-05-03] MEDS: Norepinephrine 4 MG in D5% in Water 250 ML IVC SCH ×2 (19:35→21:50)
[2017-05-03] MEDS: Amiodarone Premix 360 MG/200 ML BAG IVC SCH (19:50)
[2017-05-03] MEDS ORDERED: Amiodarone Premix 360 MG/200 ML BAG IVC ONE (19:50)
--- NOTE | 2017-05-03 20:07 | Event Note ---
Date of Encounter: 05/03/17 Time of Encounter: 19:30 Pt was found hypotension and desauration. Hand bagging and dopamine drip started. Pt soon was found pulseless and bradycardia to 40s. ACLS protocol followed. CPR started. Epinephrine 1mg iv every 5 minuted x 2. Levaphed drip started. Monitoring shows VF and defibrilation x 1 and heart rate change to sinus rhythm. Pulse resumed. BP 140/90. HR 130. Pt was given Sodium bicarbonate 50mEg x 1 iv. Cont amiodarone, levaphed, and dopamine drip now and try to taper down dopamine drip if BP can tolerate. Pt's son and POA came to bedside. Discussed with him pt's prognosis is poor. Pt' s son understand the condition and ask for no further CPR if pt has cardiac arrest or pulseless again. Code status has been changed to DNRCCA.
[2017-05-03] MEDS: Lacri-Lube 3.5 GM TUBE BOTH EYES SCH ×2 (20:36→23:33)
[2017-05-03] MEDS: Chlorhexidine Rinse 15 ML MOUTHWASH MM SCH (20:41)
[2017-05-03 20:53] LABS: Calcium 7.2 mg/dL (8.6-10.3); Magnesium 1.8 mg/dL (1.6-2.6); Potassium 3.1 mEq/L (3.5-5.1)
[2017-05-03 20:54] LABS: ABG Base Excess -10 mEq/L (-2 to 3); ABG HCO3 18 mEq/L (21-27); ABG Oxygen Saturation 96 % (95-98); ABG PCO2 50 mmHg (35-45); ABG PH 7.17 pH Units (7.32-7.45); ABG PO2 101 mmHg (85-104); ABG TCO2 20 mEq/L (20-26); Blood Gas Modality ASSIST CONTROL; Blood Gas VT 400 cc
[2017-05-03] MEDS ORDERED: Furosemide 40 MG/4 ML VIAL IVP SCH (21:00)
[2017-05-03] MEDS ORDERED: Potassium Chloride 40 MEQ, Lidocaine 1% 2 ML in D5% in Water 500 ML IVPB ONE (21:05)
[2017-05-03] MEDS ORDERED: Potassium Chloride 40 MEQ/200 ML BAG IVPB PRN (21:20)
[2017-05-03] MEDS ORDERED: Potassium Phosphate 44 MEQ in 0.9 % Sodium Chloride 250 ML IVPB PRN (21:20)
[2017-05-03 21:46] LABS: VBG HCO3 19 mEq/L (21-27); VBG Ionized Calcium 0.97 mmol/L (1.15-1.35); VBG PCO2 54 mmHg (41-51); VBG PH 7.15 pH Units (7.32-7.42); VBG PO2 212 mmHg (25-50)
[2017-05-03 23:54] LABS: Adenovirus Not Detected (Not Detect); Bordetella Pertussis Not Detected (Not Detect); Chlamydophila pneumoniae Not Detected (Not Detect); Coronavirus 229E Not Detected (Not Detect); Coronavirus HKU1 Not Detected (Not Detect); Coronavirus NL63 Not Detected (Not Detect); Coronavirus OC43 Not Detected (Not Detect); Human Metapneumovirus Not Detected (Not Detect); Human Rhinovirus/Enterovirus Not Detected (Not Detect); Influenza A Subtype 2009 H1 Not Detected (Not Detect); Influenza A Untypeable Not Detected (Not Detect); Influenza B Not Detected (Not Detect); Mycoplasma pneumoniae Not Detected (Not Detect); Parainfluenza Virus 1 Not Detected (Not Detect); Parainfluenza Virus 2 Not Detected (Not Detect); Parainfluenza Virus 3 Not Detected (Not Detect); Parainfluenza Virus 4 Not Detected (Not Detect); Respiratory Syncytial Virus Not Detected (Not Detect)
[2017-05-04 00:24] LABS: Activated Partial Thrombo Time 169.2 Seconds (26.0-36.0)
[2017-05-04 00:32] LABS: Heparin anti-factor XA UFH 0.74 IU/mL (0.30-0.70)
[2017-05-04] MEDS: Norepinephrine 4 MG in D5% in Water 250 ML IVC SCH ×2 (01:33→05:20)
[2017-05-04] MEDS: Lacri-Lube 3.5 GM TUBE BOTH EYES SCH ×6 (03:37→23:13)
[2017-05-04 04:24] LABS: Basophils % 0.2 %; Hematocrit 36.2 % (35.3-44.9); Immature Granulocytes % 1.6 % (0-4); Lymphocytes # 0.4 K/mcL (0.6-4.6); Lymphocytes % 2.3 %; Mean Corpuscular HGB Conc 33.1 g/dL (31.6-35.5); Mean Corpuscular Hemoglobin 28.9 pg (28.0-33.3); Mean Corpuscular Volume 87.2 fL (83.0-100.0); Mean Platelet Volume 10.9 fL (9.4-12.4); Monocytes # 0.3 K/mcL (0.0-1.3); Monocytes % 1.5 %; Platelet Count 151 K/mcL (140-400); Red Blood Count 4.15 M/mcL (3.82-4.97); Red Cell Distribution Width 14.3 % (11.5-14.5); Segmented Neutrophils % 94.4 %
[2017-05-04 04:35] LABS: Neutrophils # 17.9 K/mcL (1.6-8.9)
[2017-05-04 04:36] LABS: Calcium 7.8 mg/dL (8.6-10.3); Magnesium 2.2 mg/dL (1.6-2.6); Potassium 3.9 mEq/L (3.5-5.1)
[2017-05-04 04:40] LABS: VBG Ionized Calcium 1.02 mmol/L (1.15-1.35); VBG PH 7.18 pH Units (7.32-7.42)
[2017-05-04 05:02] LABS: ABG Base Excess -7 mEq/L (-2 to 3); ABG HCO3 20 mEq/L (21-27); ABG Oxygen Saturation 100 % (95-98); ABG PCO2 43 mmHg (35-45); ABG PH 7.27 pH Units (7.32-7.45); ABG PO2 244 mmHg (85-104); ABG TCO2 21 mEq/L (20-26); Blood Gas Modality ASSIST CONTROL; Blood Gas PEEP 15 cm H2O; Blood Gas Respiration Rate 22; Blood Gas VT 400 cc
[2017-05-04] MEDS: cefTRIAXone 1,000 MG in Water for inj. (sterile) 20 ML 10 ML IVP SCH (05:25)
[2017-05-04] MEDS: Insulin LISPRO 300 UNITS/3 ML VIAL SQ SCH ×4 (05:25→23:13)
[2017-05-04 05:39] LABS: Platelet Estimate Normal (Normal); Reactive Lymphocytes Present (Not Present); Smudge Cells Present (Not Present); Toxic Granulation Present (Not Present); Toxic Vacuolation Present (Not Present)
[2017-05-04] MEDS: Amiodarone Premix 360 MG/200 ML BAG IVC SCH ×2 (06:34→19:20)
[2017-05-04 06:41] LABS: Activated Partial Thrombo Time 150.5 Seconds (26.0-36.0)
[2017-05-04 06:45] LABS: Heparin anti-factor XA UFH 0.56 IU/mL (0.30-0.70)
[2017-05-04] MEDS: Chlorhexidine Rinse 15 ML MOUTHWASH MM SCH ×2 (07:59→20:11)
[2017-05-04] MEDS: Pantoprazole 40 MG VIAL IVPB SCH (07:59)
[2017-05-04] MEDS: Oseltamivir Phosphate 30 MG CAPSULE PO SCH ×2 (08:38→20:11)
--- NOTE | 2017-05-04 09:57 | Pulmonology Progress Note ---
<Scar Doshi W - Last Filed: 05/04/17 10:17> Date of Encounter: 05/04/17 Objective PUL Vital signs: Last Vital Signs Temp 97.3 F L 05/04/17 07:40 Pulse 65 05/04/17 08:13 Resp 23 05/04/17 09:29 BP 120/77 05/04/17 09:29 Pulse Ox 95 05/04/17 09:29 Ventilator Settings Ventilator Settings: Ventilator Settings, Last 8 Hours Ventilator Mode A/C Ventilator Mode A/C Ventilator Mode A/C Ventilator Mode A/C Ventilator Mode A/C Ventilator Mode A/C Ventilator Mode A/C Ventilator Mode A/C Ventilator Mode A/C Ventilator Mode A/C Ventilator Mode A/C Ventilator Mode A/C Ventilator Tidal Volume 400 Setting Ventilator Tidal Volume 400 Setting Ventilator Tidal Volume 400 Setting Ventilator Tidal Volume 400 Setting Ventilator Tidal Volume 400 Setting Ventilator Tidal Volume 400 Setting Ventilator Tidal Volume 400 Setting Ventilator Tidal Volume 500 Setting Ventilator Tidal Volume 400 Setting Ventilator Tidal Volume 400 Setting Ventilator Tidal Volume 400 Setting Ventilator Tidal Volume 400 Setting Ventilator Respiratory Rate 22 Setting Ventilator Respiratory Rate 22 Setting Ventilator Respiratory Rate 22 Setting Ventilator Respiratory Rate 22 Setting Ventilator Respiratory Rate 22 Setting Ventilator Respiratory Rate 22 Setting Ventilator Respiratory Rate 22 Setting Ventilator Respiratory Rate 22 Setting Ventilator Respiratory Rate 22 Setting Ventilator Respiratory Rate 22 Setting Ventilator Respiratory Rate 22 Setting Ventilator Respiratory Rate 22 Setting Actual Respiratory Rate 22 Actual Respiratory Rate 22 Actual Respiratory Rate 22 Actual Respiratory Rate 22 Actual Respiratory Rate 22 Actual Respiratory Rate 23 Actual Respiratory Rate 22 Actual Respiratory Rate 26 Actual Respiratory Rate 22 Actual Respiratory Rate 22 Actual Respiratory Rate 22 Positive End Expiratory 15 Pressure Positive End Expiratory 15 Pressure Positive End Expiratory 15 Pressure Positive End Expiratory 15 Pressure Positive End Expiratory 15 Pressure Positive End Expiratory 15 Pressure Positive End Expiratory 15 Pressure Positive End Expiratory 15 Pressure Positive End Expiratory 15 Pressure Positive End Expiratory 15 Pressure Positive End Expiratory 15 Pressure Positive End Expiratory 15 Pressure Peak Inspiratory Airway 38 Pressure Peak Inspiratory Airway 30 Pressure Peak Inspiratory Airway 31 Pressure Peak Inspiratory Airway 32 Pressure Peak Inspiratory Airway 21 Pressure Peak Inspiratory Airway 32 Pressure Peak Inspiratory Airway 30 Pressure Peak Inspiratory Airway 33 Pressure Peak Inspiratory Airway 29 Pressure Peak Inspiratory Airway 29 Pressure Peak Inspiratory Airway 31 Pressure Results - Laboratory Findings CBC and BMP: 05/04/17 04:11 05/04/17 04:11 ABG ABG pH 7.27 pH Units (7.32-7.45) L 05/04/17 04:56 ABG pCO2 43 mmHg (35-45) 05/04/17 04:56 ABG pO2 244 mmHg (85-104) H 05/04/17 04:56 ABG O2 Saturation 100 % (95-98) H 05/04/17 04:56 PT/INR, D-dimer PT 13.4 Seconds (9.4-12.1) H 05/03/17 14:12 Abnormal lab findings: Abnormal lab results WBC 19.0 K/mcL (4.3-11.1) H D 05/04/17 04:11 Neutrophils # 17.9 K/mcL (1.6-8.9) H 05/04/17 04:11 Lymphocytes # 0.4 K/mcL (0.6-4.6) L 05/04/17 04:11 Reactive Lymphocytes Present (Not Present) A 05/04/17 04:11 Smudge Cells Present (Not Present) A 05/04/17 04:11 Toxic Granulation Present (Not Present) A 05/04/17 04:11 Toxic Vacuolation Present (Not Present) A 05/04/17 04:11 PT 13.4 Seconds (9.4-12.1) H 05/03/17 14:12 APTT 150.5 Seconds (26.0-36.0) H* 05/04/17 06:10 ABG pH 7.27 pH Units (7.32-7.45) L 05/04/17 04:56 ABG pO2 244 mmHg (85-104) H 05/04/17 04:56 ABG HCO3 20 mEq/L (21-27) L 05/04/17 04:56 ABG O2 Saturation 100 % (95-98) H 05/04/17 04:56 ABG Base Excess -7 mEq/L (-2 to 3) L 05/04/17 04:56 VBG pH 7.18 pH Units (7.32-7.42) L* 05/04/17 04:31 VBG pCO2 54 mmHg (41-51) H 05/03/17 21:39 VBG pO2 212 mmHg (25-50) H 05/03/17 21:39 VBG HCO3 19 mEq/L (21-27) L 05/03/17 21:39 Sodium 127 mEq/L (136-145) L 05/04/17 04:11 Chloride 96 mEq/L (98-107) L 05/04/17 04:11 Carbon Dioxide 20 mEq/L (23-29) L 05/04/17 04:11 BUN 29 mg/dL (8-23) H 05/04/17 04:11 Creatinine 2.01 mg/dL (0.60-1.20) H 05/04/17 04:11 Est GFR ( Amer) 28 (> 60) L 05/04/17 04:11 Est GFR (Non-Af Amer) 23 (> 60) L 05/04/17 04:11 Glucose 184 mg/dL (70-105) H 05/04/17 04:11 POC Glucose 294 (58-89) H 05/03/17 23:31 Calculated Osmolality 275 (280-300) L 05/04/17 04:11 Lactic Acid 2.3 mmol/L (0.5-2.2) H 05/04/17 08:11 Calcium 7.8 mg/dL (8.6-10.3) L 05/04/17 04:11 Venous Ioniz Calcium 1.02 mmol/L (1.15-1.35) L 05/04/17 04:31 Phosphorus 5.0 mg/dL (2.7-4.5) H 05/04/17 04:11 Troponin I 1.47 ng/mL (< 0.04) H* 05/03/17 23:50 B-Natriuretic Peptide 4486 pg/mL (Less than 100) H 05/03/17 14:19 TSH 6.115 mcIU/mL (0.340-5.600) H 05/03/17 14:19 Urine Clarity Turbid (Clear) A 05/03/17 15:12 Urine Protein 100 mg/dL (Neg-Trace) H 05/03/17 15:12 Urine Blood Large (Negative) H 05/03/17 15:12 Ur Leukocyte Esterase Moderate (Negative) H 05/03/17 15:12 Urine Microscopic RBC 30-50 per hpf (0-3) H 05/03/17 15:12 Urine Microscopic WBC TNTC per hpf (0-3) H 05/03/17 15:12 Ur Squamous Epith Cells Many per lpf (None-Few) H 05/03/17 15:12 Urine Bacteria Many per hpf (None-Few) H 05/03/17 15:12 Influenza A (H3) PCR DETECTED (Not Detect) A 05/03/17 20:57 - Clinical Findings Intake & Output: Intake & Output 05/03/17 05/04/17 05/04/17 23:59 07:59 15:59 Intake Total 707 / 765 1412 / 1412 Output Total 400 / 400 125 / 125 Balance 307 / 365 1287 / 1287 Consult Discharge Plan - Plan Referrals: Paco Louise Jr, MD [Primary Care Provider] - - Attending Attestation I examined this patient and my medical decision-making was reviewed with the Resident Physician. I agree with the documented findings, disposition and treatment plan as described except to the extent set forth below. We independently had [id number] contact with the patient I spent 40min of Critical Care time with this patient. It involved decision making of high complexity to assess, manipulate, and support vital organ system failure and/or to prevent further life threatening deterioration of the patient' s condition. The time involved in the performance of separately reportable procedures was not counted toward critical care time. Patient seen and examined at bedside Labs, radiology, chart personally reviewed. Management was reviewed during multidisciplinary critical care rounds. 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 EEG pending. Pulm: Severe Acute Hypoxic Hypercapnic respiratory failure s/t PNA (Influenza) wtih suspect ARDS. Cont LTV stregy with deep sedation Vent adjusted to lower PEEP and FIO2 based upon ABg today. Cont Steroids for Severe PNA. . Cards: S/p Cardiac aresst with cardiogenic shock with troponin elevation suspect demand ischemia with severe ischemic cardiomyopathy at baseline ECHO pending final read. Cardiology following. Vtach overnight during arrest cont Amiodarone. Wean vasopressors. Lactate trending down FEN-GI:PPI prophylaxis given Renal: DEN UOP monitored renally dose meds per pharmacy ID: PNA s/t Influenza on Oseltamivir and Vanco. Cultures pending. Deescalate based upon sensitivities Heme/Onc: H/H stable. on Heparin infusion for ACS. cont to monitor plts. Endo: Glucose Monitored Integ/MSK: Skin Care per routine ICU Nursing Protocol to prevent ulcers. Lines: All lines examined without evidence of infection : Dispo: Remain in ICU CODE: DNAR/DNI Son (POA updated at bedside) Discussed again about severity of illness and grim prognosis. Will cont aggressive care present likely transistion to comfort if further deterioration. Palliative Care Consulted <Martin Reyes - Last Filed: 05/04/17 14:54> Date of Encounter: 05/04/17 Time of Encounter: 09:57 Assessment and Plan (1) Acute respiratory failure with hypoxia and hypercapnia Current Visit: Yes Status: Acute Patient with Acute respiratory failure with hypoxia and hypercapnia likely 2/2 to PNA(Influenza) with suspected ARDS. patient given Vanc, zosyn, and levaquin in ED Patient started on Ceftriaxone, and azithromycin in the ICU. CXR 05/03: "Diffuse bilateral pulmonary infiltrates. Small bilateral effusions. " CXR 05/04: "improving b/l pna" CTA: "1. No evidence of pulmonary embolic disease. 2. Consolidation within the lower lobes as well as the dependent right upper lobe. Suspected pulmonary edema within the right upper lobe and left perihilar upper lobe. Bilateral pleural effusions. Differential considerations include CHF, ARDS, pulmonary hemorrhage or pneumonia" Given IV steroids 80mg Solumedrol respiratory viral panel was positive for influenza type A Plan: Continue Mechanical ventilation continue Vanc stopped other abx ween sedation as able sputum cx ordered start 40mg IV solumedrol daily Continue to monitor (2) Severe sepsis Current Visit: Yes Status: Acute Patient met criteria for severe sepsis based on lactic acid of 4.6, tachycardia , acute respiratory failure patient had CVC placed in the ED BCx drawn in the ED NGTD patient given vanc, zosyn, levaquin in the ED Patient given albumin, ceftriaxone, and azithromycin in the ICU repeat LA up to 7.8 repeat this morning down to 2.0 viral panel positive for influenza A Plan: continue to monitor Continue vanc continue tamiflu sputum cx pending continue steroids (3) Community acquired pneumonia Current Visit: Yes Status: Acute Pt likely with CAP likely 2/[address] chest showed multifocal consolidations in both lungs Patient received Vanc, zosyn, levaquin in the ED. patient started on Ceftriaxone, and Azithromycin in the ICU Patient required Intubation 2/2 hypoxia Viral panel positive for Influenza A Patient started on tamiflu CXR 05/03 showed improvement of b/l pna Plan: Continue vanc. Continue to monitor, CBC, Lactic Acid Continue tamiflu sputum cx ordered continue steroids Qualifiers: Laterality: unspecified laterality Qualified Code(s): J18.9 - Pneumonia, unspecified organism (4) Influenza A Current Visit: Yes Status: Acute Patient's respiratory panel came back positive for Influenza type A (H3) Patient started on Tamiflu Plan: continue tamiflu (5) Acute encephalopathy Current Visit: Yes Status: Acute Likely secondary to hypoxia and Sepsis Patient sating at 68% on non re breather upon arrival required intubation. Patient only responded briefly to her name, would not follow commands per ED team. Patient intubated and sedated upon my examination. CT head showed no acute process. Pt had EEG this morning which showed burst supression a poor prognostic feature. Plan: Continue to monitor Ween sedation as able. Continue abx and sepsis treatment. Placed consult to Neurology to formally weigh in on prognosis (6) Reduced ejection fraction concurrent with and due to acute on chronic heart failure Current Visit: Yes Status: Acute patient with acute on chronic CHF with reduced EF EF 20-25% in 2013 Reeat echo in hospital showed EF 15% Poor follow up/ compliance. Patient not on ASA, BB, Statin at home Cardiology is on board Patient arrested yesterday evening. Plan: Cardiology following. Appreciate and recommendations. Will look to start CHF medications once off vent. (7) Elevated troponin Current Visit: Yes Status: Acute likely secondary to demand ischemia concern for NSTEMI patient with acute on chronic CHF with reduced EF Patient on heparin drip due to concern of possible NSTEMI per cardiology's recs. Trop 0.19 on admission went up to 0.85 and then 1.47. 1.47 was after patient coded. Plan: continue heparin drip Cardiology on board for further work up and management. (8) Tachycardia Current Visit: Yes Status: Acute likely secondary to sepsis and heart failure Patient with known chronic LBBB Cardiology is on board. Patient received synchronized, and unsynchronized caridoversion and amiodarone drip, but patient remains tachycardic Patient went into cardiac arrest with cardiogenic shock with periods of Vtach overnight. Plan: continue to monitor continue amiodarone drip continue to follow cardiology's recommendations. (9) Lactic acid acidosis Current Visit: Yes Status: Acute Secondary to Severe Sepsis LA 4.6 upon admission, Recheck was 7.8, repeat today is 2.0 Plan: See Severe Sepsis for plan (10) DVT prophylaxis Current Visit: Yes Status: Acute Currently on Heparin drip Plan: continue to titrate per protocol on PPI for GI ppx Subjective Principal diagnosis: Acute hypoxic hypercapnic respiratory failure 2/2 PNA Interval history: Patient seen and examined at bedside by me. Patient coded over night. ROSC was achieved. See Event note for more details. Family changed code status to DNR CCA. Patient improved on the vent, cxr. Patient postive for flu started on tamiflu Objective PUL Vital signs: Last Vital Signs Temp 97.3 F L 05/04/17 07:40 Pulse 65 05/04/17 08:13 Resp 23 05/04/17 09:29 BP 120/77 05/04/17 09:29 Pulse Ox 95 05/04/17 09:29 General appearance: other (intubated and sedated) Eyes: nonicteric, other (sluggish pupilary response) ENT: oropharynx moist Neck: supple Auscultation: bilateral: rhonchi Cardiovascular: regular rate and rhythm Gastrointestinal: normoactive bowel sounds Integumentary: normal Extremities: no edema unable to assess due to mental status Ventilator Settings Ventilator Settings: Ventilator Settings, Last 8 Hours Ventilator Mode A/C Ventilator Mode A/C Ventilator Mode A/C Ventilator Mode A/C Ventilator Mode A/C Ventilator Mode A/C Ventilator Mode A/C Ventilator Mode A/C Ventilator Mode A/C Ventilator Mode A/C Ventilator Mode A/C Ventilator Mode A/C Ventilator Tidal Volume 400 Setting Ventilator Tidal Volume 400 Setting Ventilator Tidal Volume 400 Setting Ventilator Tidal Volume 400 Setting Ventilator Tidal Volume 400 Setting Ventilator Tidal Volume 400 Setting Ventilator Tidal Volume 400 Setting Ventilator Tidal Volume 500 Setting Ventilator Tidal Volume 400 Setting Ventilator Tidal Volume 400 Setting Ventilator Tidal Volume 400 Setting Ventilator Tidal Volume 400 Setting Ventilator Respiratory Rate 22 Setting Ventilator Respiratory Rate 22 Setting Ventilator Respiratory Rate 22 Setting Ventilator Respiratory Rate 22 Setting Ventilator Respiratory Rate 22 Setting Ventilator Respiratory Rate 22 Setting Ventilator Respiratory Rate 22 Setting Ventilator Respiratory Rate 22 Setting Ventilator Respiratory Rate 22 Setting Ventilator Respiratory Rate 22 Setting Ventilator Respiratory Rate 22 Setting Ventilator Respiratory Rate 22 Setting Actual Respiratory Rate 22 Actual Respiratory Rate 22 Actual Respiratory Rate 22 Actual Respiratory Rate 22 Actual Respiratory Rate 22 Actual Respiratory Rate 23 Actual Respiratory Rate 22 Actual Respiratory Rate 26 Actual Respiratory Rate 22 Actual Respiratory Rate 22 Actual Respiratory Rate 22 Positive End Expiratory 15 Pressure Positive End Expiratory 15 Pressure Positive End Expiratory 15 Pressure Positive End Expiratory 15 Pressure Positive End Expiratory 15 Pressure Positive End Expiratory 15 Pressure Positive End Expiratory 15 Pressure Positive End Expiratory 15 Pressure Positive End Expiratory 15 Pressure Positive End Expiratory 15 Pressure Positive End Expiratory 15 Pressure Positive End Expiratory 15 Pressure Peak Inspiratory Airway 38 Pressure Peak Inspiratory Airway 30 Pressure Peak Inspiratory Airway 31 Pressure Peak Inspiratory Airway 32 Pressure Peak Inspiratory Airway 21 Pressure Peak Inspiratory Airway 32 Pressure Peak Inspiratory Airway 30 Pressure Peak Inspiratory Airway 33 Pressure Peak Inspiratory Airway 29 Pressure Peak Inspiratory Airway 29 Pressure Peak Inspiratory Airway 31 Pressure Results - Laboratory Findings CBC and BMP: 05/04/17 04:11 05/04/17 04:11 ABG ABG pH 7.27 pH Units (7.32-7.45) L 05/04/17 04:56 ABG pCO2 43 mmHg (35-45) 05/04/17 04:56 ABG pO2 244 mmHg (85-104) H 05/04/17 04:56 ABG O2 Saturation 100 % (95-98) H 05/04/17 04:56 PT/INR, D-dimer PT 13.4 Seconds (9.4-12.1) H 05/03/17 14:12 Abnormal lab findings: Abnormal lab results WBC 19.0 K/mcL (4.3-11.1) H D 05/04/17 04:11 Neutrophils # 17.9 K/mcL (1.6-8.9) H 05/04/17 04:11 Lymphocytes # 0.4 K/mcL (0.6-4.6) L 05/04/17 04:11 Reactive Lymphocytes Present (Not Present) A 05/04/17 04:11 Smudge Cells Present (Not Present) A 05/04/17 04:11 Toxic Granulation Present (Not Present) A 05/04/17 04:11 Toxic Vacuolation Present (Not Present) A 05/04/17 04:11 PT 13.4 Seconds (9.4-12.1) H 05/03/17 14:12 APTT 150.5 Seconds (26.0-36.0) H* 05/04/17 06:10 ABG pH 7.27 pH Units (7.32-7.45) L 05/04/17 04:56 ABG pO2 244 mmHg (85-104) H 05/04/17 04:56 ABG HCO3 20 mEq/L (21-27) L 05/04/17 04:56 ABG O2 Saturation 100 % (95-98) H 05/04/17 04:56 ABG Base Excess -7 mEq/L (-2 to 3) L 05/04/17 04:56 VBG pH 7.18 pH Units (7.32-7.42) L* 05/04/17 04:31 VBG pCO2 54 mmHg (41-51) H 05/03/17 21:39 VBG pO2 212 mmHg (25-50) H 05/03/17 21:39 VBG HCO3 19 mEq/L (21-27) L 05/03/17 21:39 Sodium 127 mEq/L (136-145) L 05/04/17 04:11 Chloride 96 mEq/L (98-107) L 05/04/17 04:11 Carbon Dioxide 20 mEq/L (23-29) L 05/04/17 04:11 BUN 29 mg/dL (8-23) H 05/04/17 04:11 Creatinine 2.01 mg/dL (0.60-1.20) H 05/04/17 04:11 Est GFR ( Amer) 28 (> 60) L 05/04/17 04:11 Est GFR (Non-Af Amer) 23 (> 60) L 05/04/17 04:11 Glucose 184 mg/dL (70-105) H 05/04/17 04:11 POC Glucose 294 (58-89) H 05/03/17 23:31 Calculated Osmolality 275 (280-300) L 05/04/17 04:11 Lactic Acid 2.3 mmol/L (0.5-2.2) H 05/04/17 08:11 Calcium 7.8 mg/dL (8.6-10.3) L 05/04/17 04:11 Venous Ioniz Calcium 1.02 mmol/L (1.15-1.35) L 05/04/17 04:31 Phosphorus 5.0 mg/dL (2.7-4.5) H 05/04/17 04:11 Troponin I 1.47 ng/mL (< 0.04) H* 05/03/17 23:50 B-Natriuretic Peptide 4486 pg/mL (Less than 100) H 05/03/17 14:19 TSH 6.115 mcIU/mL (0.340-5.600) H 05/03/17 14:19 Urine Clarity Turbid (Clear) A 05/03/17 15:12 Urine Protein 100 mg/dL (Neg-Trace) H 05/03/17 15:12 Urine Blood Large (Negative) H 05/03/17 15:12 Ur Leukocyte Esterase Moderate (Negative) H 05/03/17 15:12 Urine Microscopic RBC 30-50 per hpf (0-3) H 05/03/17 15:12 Urine Microscopic WBC TNTC per hpf (0-3) H 05/03/17 15:12 Ur Squamous Epith Cells Many per lpf (None-Few) H 05/03/17 15:12 Urine Bacteria Many per hpf (None-Few) H 05/03/17 15:12 Influenza A (H3) PCR DETECTED (Not Detect) A 05/03/17 20:57 - Clinical Findings Intake & Output: Intake & Output 05/03/17 05/04/17 05/04/17 23:59 07:59 15:59 Intake Total 707 / 765 1412 / 1412 Output Total 400 / 400 125 / 125 Balance 307 / 365 1287 / 1287
[2017-05-04] MEDS: MethylPREDNISolone 40 MG/ML VIAL IVP SCH (11:22)
[2017-05-04] MEDS: FentaNYL (PF) 1,000 MCG in 0.9 % Sodium Chloride 80 ML IVC SCH (11:53)
[2017-05-04] MEDS ORDERED: Vancomycin 750 MG in D5% in Water 250 ML IVPB ONE (12:00)
--- NOTE | 2017-05-04 13:13 | Palliative - Consult Note ---
Date of Encounter: 05/04/17 Time of Encounter: 10:50 - Assessment and Plan (1) Generalized pain Current Visit: Yes Status: Acute Assessment and plan: Remains on Fentanyl drip per ICU protocol. Monitor (2) Counseling regarding advanced care planning and goals of care Current Visit: Yes Status: Acute Assessment and plan: Discussed with lucio Alvarado at bedside. He has already spoken with Dr. Doshi , and understands she has poor prognosis. Refugio, son from [place] is here, and there is another son Bill that resides in [facility]. Christiano states that he will most likely be coming this weekend. He states that they are hoping for some improvement over the next couple of days, and if not, they will focus on keeping her comfortable. He is aware that she may not survive. Will continue to follow closely and support as needed. (3) Acute respiratory failure with hypoxia and hypercapnia Current Visit: Yes Status: Acute (4) Community acquired pneumonia Current Visit: Yes Status: Acute Qualifiers: Laterality: unspecified laterality Qualified Code(s): J18.9 - Pneumonia, unspecified organism (5) Systolic CHF Current Visit: Yes Status: Acute Qualifiers: Congestive heart failure chronicity: acute on chronic Qualified Code(s): I50.23 - Acute on chronic systolic (congestive) heart failure Palliative-CN HPI - Data of Consult Consult date: 05/04/17 Requesting Physician: Scar Doshi MD Primary Care Provider: Paco Louise Jr, MD - Consult Narrative History of present illness: Ms. Hewitt is a 86 year old female was has history of cardiomyopathy, cardiac disease, hypertension, and was admitted for acute respiratory failure and CAP. She was in [facility] and traveled back to this area on Monday. SonChristiano at bedside states that she had cough coming back on , and on Mon, had altered mental status. She was brought to ER and admitted. She hypoxic and required intubation. A few hours later, she did arrest and had between 7-9 minutes ACLS before ROSC. Son did decide at that point if her heart stopped again, he did not want her coded again. She is currently on vent support, as well as pressors, and amiodarone. Her last known EF was 20% - echo from today demonstrates this now at 15%. Cardiology as well as Pulmonology is managing her care in the ICU. + Influenza A. Upon my visit, son Christiano is at the bedside. She opens eyes occasionally, some myoclonic jerking noted. Does not follow commands or react to painful stimuli. Does not appear in distress. CC: Scar Doshi MD Past Med Surg Social Fam HX - Past Medical History Medical history: arthritis Psychiatric history: no psych history - Social History Smoking Status: Unknown if ever smoked Smokeless Tobacco Status: No Alcohol use: occasionally Drug use: none - Family History Mother Living Status: Father Living Status: Medications and Allergies [place]-3/Dha/Epa/Fish Oil [Fish Oil 1,000 mg Softgel] 1,000 mg PO DAILY 05/03/17 [History] 3 Allergy/AdvReac Type Severity Reaction Status Date / Time NSAIDS (Non-Steroidal Allergy Mild See Verified 05/03/17 14:27 Anti-Inflamma Comments bacitracin [From Cortisporin] Allergy See Verified 05/03/17 14:27 Comments ciprofloxacin Allergy See Verified 05/03/17 14:27 Comments clindamycin Allergy See Verified 05/03/17 14:27 Comments codeine Allergy See Verified 05/03/17 14:27 Comments dexamethasone [From Ciprodex] Allergy See Verified 05/03/17 14:27 Comments doxycycline Allergy See Verified 05/03/17 14:27 Comments fluticasone [From Flonase] Allergy See Verified 05/03/17 14:27 Comments hydrocortisone Allergy See Verified 05/03/17 14:27 [From Cortisporin] Comments meperidine [From Demerol] Allergy See Verified 05/03/17 14:27 Comments Neomycin [From Cortisporin] Allergy See Verified 05/03/17 14:27 Comments polymyxin B Allergy See Verified 05/03/17 14:27 [From Cortisporin] Comments Sulfa (Sulfonamide Allergy See Verified 05/03/17 14:27 Antibiotics) Comments arthritis medications Allergy See Uncoded 05/03/17 14:27 Comments ROS unobtainable: due to mental status Palliative Care-Exam - Constitutional Vitals: Temp Pulse Resp BP Pulse Ox 97.4 F L 70 23 119/71 95 05/04/17 11:36 05/04/17 12:00 05/04/17 12:00 05/04/17 12:00 05/04/17 12:00 General appearance: Present: no acute distress - Head Head Exam: Present: normal inspection, normocephalic - Cardiovascular Cardiovascular exam: Present: +S1, +S2 - GI/Abdominal Exam GI/Abdominal exam: Present: normal bowel sounds, soft - Catheter Type: Urethral (Gabriel) - Extremities Exam Extremities exam: Present: normal capillary refill, normal inspection - Neurological Exam Additional comments: Right pupil 2mm and not reacting to light. Left pupil 3mm and not reactive. Does not follow commands. Occasional jerking noted. - Skin Skin exam: Present: dry, pallor, warm Internal Medicine - CN: Reslt - Labs CBC & Chem 7: 05/04/17 04:11 05/04/17 04:11 Labs: Short CBC 05/04/17 Range/Units 04:11 WBC 19.0 H D (4.3-11.1) K/mcL Hgb 12.0 (11.5-15.4) g/dL Hct 36.2 (35.3-44.9) % Plt Count 151 (140-400) K/mcL Neutrophils # 17.9 H (1.6-8.9) K/mcL BMP 05/03/17 05/04/17 20:30 04:11 Sodium 131 L 127 L Potassium 3.1 L D 3.9 D Chloride 96 L 96 L Carbon Dioxide 19 L 20 L BUN 26 H 29 H Creatinine 1.72 H 2.01 H Glucose 319 H 184 H Calcium 7.2 L 7.8 L Cardiac Enzymes 05/03/17 05/03/17 Range/Units 18:04 23:50 Troponin I 0.85 H* 1.47 H* (< 0.04) ng/mL - ABG Interpretation ABG results: ABG ABG pH 7.27 pH Units (7.32-7.45) L 05/04/17 04:56 ABG pCO2 43 mmHg (35-45) 05/04/17 04:56 ABG pO2 244 mmHg (85-104) H 05/04/17 04:56 ABG O2 Saturation 100 % (95-98) H 05/04/17 04:56 PT/INR, D-dimer PT 13.4 Seconds (9.4-12.1) H 05/03/17 14:12 - Impressions Impressions Chest X-Ray 05/04/17 06:00 IMPRESSION: Improving bilateral pneumonia. D/ / Gavino Monroy MD / Gavino Monroy MD Interpreting Provider: Gavino Monroy MD Consult Discharge Plan - Plan Referrals: Paco Louise Jr, MD [Primary Care Provider] - Palliative Quality Palliative Quality: Screen for Code Status: Yes, Screen for Goals of Care: Yes, Screen for Pain: Yes, If Pain Regimen Started, Initiate Bowel Regimen: NA, Screen for Nausea/Vomitting: Yes Code Status: 05/03/17 17:10 Resuscitation Status: Active [RES] Routine Comment: Resuscitation Status: Full Code 05/03/17 19:57 CODE [Resuscitation Status: Active] [RES] Routine Comment: Resuscitation Status: DNR-Comfort Care-Arrest
[2017-05-04] MEDS: Propofol 500 MG/50 ML INFUS..BTL IVC SCH (14:49)
--- NOTE | 2017-05-04 15:15 | EEG/EMG/Oth Biometrics Report ---
EEG Procedure Report Date of procedure: 05/04/17 EEG Procedure: Routine EEG Procedure Note: Report: This EEG was acquired with standard international 10-20 electrode placement system with EKG recording. The Background activity during this EEG was replaced by pattern of burst suppression with minimal reactivity. Burst suppression pattern occur persistently during the recording with burst: suppression ratio of 1-3:3-7 seconds. Sleep structures not identified during the study. There are no electrographic seizures identified during this tracing. There are no epileptiform discharges and focal slowing noted during this recording. Photic stimulation produced no abnormalities. HV procedure not performed. EKG tracing showed no significant cardiac dysarrhythmia. Impression: This is a severely abnormal EEG due to presence of burst- suppression with minimal reactivity. Clinical Correlation: This is EEG is consistent with severe diffuse cerebral dysfunction that can be seen as a result of anoxic/ischemic brain injury, severely reduced brain activity induced by sedatives or by deep general anesthesia. Without sedatives or general anesthesia in patients with normal body temperature, this pattern indicates presence of severe cerebral dysfunction and is associated with poor neurological prognosis. Please correlates clinically.
--- NOTE | 2017-05-04 15:38 | Event Note ---
Date of Encounter: 05/04/17 Time of Encounter: 15:36 I met with the son and ACRMEN Martinez along with his brother the bedside ICU nurse and the resident in the ICU office where the family wanted to discuss goals of care. She had an EEG today that was consistent with burst suppression and overall extremely poor neurological prognosis. She continues to have myoclonic jerking related to anoxia which is very disturbing for the family and given the overall severity of her clinical situation they want to de-escalate curative comfort measures upon arrival of the third son. All questions answered. We provided emotional support for the patient's family and offered our condolences. CODE STATUS will be changed to comfort care upon arrival of the third son no further escalation of care at this time
[2017-05-04] MEDS: Heparin 25,000 UNIT/500 ML D5W 25,000 UNIT/500 ML BAG IVC SCH (16:36)
--- NOTE | 2017-05-04 17:03 | Neurology - Consult Note ---
Date of Encounter: 05/04/17 Time of Encounter: 14:00 Assessment and Plan (1) Unresponsiveness Current Visit: Yes Status: Acute Patient is an 86 year old woman who underwent cardiac arrest after development of severe SOB and respiratory failure, with cardiac down time more than 7 minutes, not waking up without no sedation and normal body temperature. She has no purposeful movement to pain and verbal commands. Neurological examination very remarkable for myoclonic jerking movements commonly seen in patients with severe anoxic brain injury which is an ominous sign. EEG recording under no sedative showing burst suppression pattern which indicate poor neurological prognosis. With such EEG pattern, most patients and few who survive will have severe neurological deficits. Impression discussed with her son and medical staff. Please call if any questions History of Present Illness Chief complaint: unresponsiveness HPI: Ms. Hewitt is a 86 year old female who underwent cardiac arrest last night requested for neurology consultation for brain function examination. Patient reportedly spend Jacky holiday at [place] with his son's family and she went back to [place]. She was feeling a little tired at [place] per his son. Yesterday afternoon she developed SOB and was brought to ER at [facility] and since her medical condition deteriorated rapidly. She went cardiac arrest at around 19:30pm. Total cardiac down time approximately 7 minutes and then was found to be in VF and then sinus rhythm after electrical shock. She has not been on sedatives other than fentanyl. Neurology was consulted to evaluate brain function and neurological prognosis. At the time of interview, 2pm this afternoon she was not responsive to painful stimuli or verbal commands. She has intermittent myoclonic jerking activity involving her head, neck and limbs. EEG was performed and showed burst suppression pattern with burst:supression ratio of 1-3/3-7 seconds. Past Med Surg Social Fam HX - Past Medical History Medical history: arthritis Psychiatric history: no psych history - Social History Smoking Status: Unknown if ever smoked Smokeless Tobacco Status: No Alcohol use: occasionally Drug use: none - Family History Mother Living Status: Father Living Status: Medications and Allergies [place]-3/Dha/Epa/Fish Oil [Fish Oil 1,000 mg Softgel] 1,000 mg PO DAILY 05/03/17 [History] 3 Allergy/AdvReac Type Severity Reaction Status Date / Time NSAIDS (Non-Steroidal Allergy Mild See Verified 05/03/17 14:27 Anti-Inflamma Comments bacitracin [From Cortisporin] Allergy See Verified 05/03/17 14:27 Comments ciprofloxacin Allergy See Verified 05/03/17 14:27 Comments clindamycin Allergy See Verified 05/03/17 14:27 Comments codeine Allergy See Verified 05/03/17 14:27 Comments dexamethasone [From Ciprodex] Allergy See Verified 05/03/17 14:27 Comments doxycycline Allergy See Verified 05/03/17 14:27 Comments fluticasone [From Flonase] Allergy See Verified 05/03/17 14:27 Comments hydrocortisone Allergy See Verified 05/03/17 14:27 [From Cortisporin] Comments meperidine [From Demerol] Allergy See Verified 05/03/17 14:27 Comments Neomycin [From Cortisporin] Allergy See Verified 05/03/17 14:27 Comments polymyxin B Allergy See Verified 05/03/17 14:27 [From Cortisporin] Comments Sulfa (Sulfonamide Allergy See Verified 05/03/17 14:27 Antibiotics) Comments arthritis medications Allergy See Uncoded 05/03/17 14:27 Comments All Systems: A 10-system review of systems was performed and is negative for pertinent findings except as documented above in the HPI. Physical Examination - Vital Signs Vital Signs: Initial Vital Signs Temp Pulse Resp BP Pulse Ox 99.0 F 121 8 131/87 81 05/03/17 13:39 05/03/17 13:39 05/03/17 13:39 05/03/17 13:39 05/03/17 13:39 - Constitutional General appearance: acutely ill - Neurologic Sensorimotor examination: other (Unable to assess due to coma) Detailed motor examination: other (Paralysed with myoclonic jerking invovling arms and legs, resembling of decorticate posturing) Detailed sensory examination: other (No response to painful stimuli) Posture: other (Myoclonic jerking noted, posturing of her head, turning to the left side) Reflexes: Biceps: 0, Triceps: 0, Brachioradialis: 0, Patella: 0, Achilles: 0 Mental Status Examination: coma Cranial nerve examination: PERRL (Pupils are small and midline, not able to detect light reflex, has head posturing but no eye deviation), corneal reflexes brisk symmetrically (Not detected, no other movements other myoclonic jerking involving head and limbs) Results - Laboratory Findings CBC and BMP: 05/04/17 04:11 05/04/17 04:11 Abnormal lab findings: Abnormal lab results WBC 19.0 K/mcL (4.3-11.1) H D 05/04/17 04:11 Neutrophils # 17.9 K/mcL (1.6-8.9) H 05/04/17 04:11 Lymphocytes # 0.4 K/mcL (0.6-4.6) L 05/04/17 04:11 Reactive Lymphocytes Present (Not Present) A 05/04/17 04:11 Smudge Cells Present (Not Present) A 05/04/17 04:11 Toxic Granulation Present (Not Present) A 05/04/17 04:11 Toxic Vacuolation Present (Not Present) A 05/04/17 04:11 PT 13.4 Seconds (9.4-12.1) H 05/03/17 14:12 APTT 51.3 Seconds (26.0-36.0) H D 05/04/17 11:42 ABG pH 7.27 pH Units (7.32-7.45) L 05/04/17 04:56 ABG pO2 244 mmHg (85-104) H 05/04/17 04:56 ABG HCO3 20 mEq/L (21-27) L 05/04/17 04:56 ABG O2 Saturation 100 % (95-98) H 05/04/17 04:56 ABG Base Excess -7 mEq/L (-2 to 3) L 05/04/17 04:56 VBG pH 7.18 pH Units (7.32-7.42) L* 05/04/17 04:31 VBG pCO2 54 mmHg (41-51) H 05/03/17 21:39 VBG pO2 212 mmHg (25-50) H 05/03/17 21:39 VBG HCO3 19 mEq/L (21-27) L 05/03/17 21:39 Sodium 127 mEq/L (136-145) L 05/04/17 04:11 Chloride 96 mEq/L (98-107) L 05/04/17 04:11 Carbon Dioxide 20 mEq/L (23-29) L 05/04/17 04:11 BUN 29 mg/dL (8-23) H 05/04/17 04:11 Creatinine 2.01 mg/dL (0.60-1.20) H 05/04/17 04:11 Est GFR ( Amer) 28 (> 60) L 05/04/17 04:11 Est GFR (Non-Af Amer) 23 (> 60) L 05/04/17 04:11 Glucose 184 mg/dL (70-105) H 05/04/17 04:11 Calculated Osmolality 275 (280-300) L 05/04/17 04:11 Lactic Acid 2.3 mmol/L (0.5-2.2) H 05/04/17 08:11 Calcium 7.8 mg/dL (8.6-10.3) L 05/04/17 04:11 Venous Ioniz Calcium 1.02 mmol/L (1.15-1.35) L 05/04/17 04:31 Phosphorus 5.0 mg/dL (2.7-4.5) H 05/04/17 04:11 Troponin I 1.47 ng/mL (< 0.04) H* 05/03/17 23:50 B-Natriuretic Peptide 4486 pg/mL (Less than 100) H 05/03/17 14:19 TSH 6.115 mcIU/mL (0.340-5.600) H 05/03/17 14:19 Urine Clarity Turbid (Clear) A 05/03/17 15:12 Urine Protein 100 mg/dL (Neg-Trace) H 05/03/17 15:12 Urine Blood Large (Negative) H 05/03/17 15:12 Ur Leukocyte Esterase Moderate (Negative) H 05/03/17 15:12 Urine Microscopic RBC 30-50 per hpf (0-3) H 05/03/17 15:12 Urine Microscopic WBC TNTC per hpf (0-3) H 05/03/17 15:12 Ur Squamous Epith Cells Many per lpf (None-Few) H 05/03/17 15:12 Urine Bacteria Many per hpf (None-Few) H 05/03/17 15:12 Influenza A (H3) PCR DETECTED (Not Detect) A 05/03/17 20:57 Consult Discharge Plan - Plan Referrals: Paco Louise Jr, MD [Primary Care Provider] -
[2017-05-04] MEDS: Dexmedetomidine HCl 400 MCG/100 ML MLS IVC SCH (17:16)
--- NOTE | 2017-05-04 19:55 | Electrocardiograph Report ---
[address] [place], [place] [address] Test Date: 2017-05-03 Pat Name: Sadiq Hewitt Department: 104 Room: [facility] Gender: F Placement Officer: : 1930 Requested By: Nelson Ann Order Number: [id number] Reading MD: Gerald Bellamy MD Measurements Intervals [place] Rate: 141 P: -44 NM: 68 QRS: -50 QRSD: 178 T: 118 QT: 344 QTc: 426 Interpretive Statements SINUS TACHYCARDIA WITH SHORT NM INTERVAL, POSSIBLE ATRIAL FLUTTER MARKED LEFT AXIS DEVIATION LEFT BUNDLE BRANCH BLOCK Electronically Signed On 05-04-2017 19:53:27 EST by Gerald Bellamy MD
[2017-05-05] MEDS: Norepinephrine 4 MG in D5% in Water 250 ML IVC SCH (00:05)
[2017-05-05] MEDS: Insulin LISPRO 300 UNITS/3 ML VIAL SQ SCH ×2 (04:06→11:30)
[2017-05-05] MEDS: Lacri-Lube 3.5 GM TUBE BOTH EYES SCH ×4 (04:06→18:11)
[2017-05-05] MEDS: Amiodarone Premix 360 MG/200 ML BAG IVC SCH (08:01)
[2017-05-05] MEDS ORDERED: *HR* Midazolam HCl 2 MG/2 ML VIAL IVP ONE (08:09)
[2017-05-05] MEDS: Oseltamivir Phosphate 30 MG CAPSULE PO SCH (08:56)
[2017-05-05] MEDS: Chlorhexidine Rinse 15 ML MOUTHWASH MM SCH (08:56)
[2017-05-05] MEDS: MethylPREDNISolone 40 MG/ML VIAL IVP SCH (08:57)
[2017-05-05] MEDS: Pantoprazole 40 MG VIAL IVPB SCH (08:57)
--- NOTE | 2017-05-05 08:58 | Pulmonology Progress Note ---
Date of Encounter: 05/05/17 Time of Encounter: 08:58 Assessment and Plan (1) Cardiogenic shock Current Visit: Yes Status: Acute This is secondary to demand ischemia leading to reduced ejection fraction she remains on vasopressor support (2) Cardiac arrest Current Visit: Yes Status: Acute Status post cardiac arrest was evidence of severe anoxic brain injury (3) Anoxic brain damage Current Visit: Yes Status: Acute EEG yesterday shows burst suppression consistent with severe axonal injury neurology has been consulted extremely poor neurological prognosis. (4) Acute respiratory failure with hypoxia and hypercapnia Current Visit: Yes Status: Acute This is secondary to cardiogenic and noncardiogenic pulmonary edema complicated by influenza a she remains on ventilator support acceptable oxygenation ventilation today she is not a candidate for spontaneous breathing trial (5) Reduced ejection fraction concurrent with and due to acute on chronic heart failure Current Visit: Yes Status: Acute Ejection fraction reduced from previous which is likely due to acute stress/ ischemia cardiology following no plans for invasive intervention (6) Severe sepsis Current Visit: Yes Status: Acute This is secondary to influenza she is being treated with antimicrobials (7) Influenza A Current Visit: Yes Status: Acute Remains on oseltamivir (8) Counseling regarding advanced care planning and goals of care Current Visit: Yes Status: Acute X-ray performed prognosis neurologically dementia multiorgan system failure at the time of admission. Family has decided to transition to comfort measures palliative care has been consulted plan to change CODE STATUS formally when third son arrives no escalation of care at this time family updated at bedside Subjective Principal diagnosis: Acute hypoxic hypercapnic respiratory failure 2/2 PNA Interval history: No events overnight. Continued to have myoclonic jerking. Objective PUL Vital signs: Last Vital Signs Temp 97.3 F L 05/05/17 07:56 Pulse 67 05/05/17 08:00 Resp 22 05/05/17 08:00 BP 116/59 05/05/17 08:00 Pulse Ox 100 05/05/17 08:00 General appearance: comatose Auscultation: bilateral: rhonchi Cardiovascular: regular rate and rhythm Gastrointestinal: hypoactive bowel sounds, soft Extremities: no edema Musculoskeletal: no deformities pupils equal and round (No purposeful movements myoclonic jerking noted) Ventilator Settings Ventilator Settings: Ventilator Settings, Last 8 Hours Ventilator Mode A/C Ventilator Mode A/C Ventilator Mode A/C Ventilator Mode A/C Ventilator Mode A/C Ventilator Mode A/C Ventilator Mode A/C Ventilator Mode A/C Ventilator Mode A/C Ventilator Mode A/C Ventilator Mode A/C Ventilator Mode A/C Ventilator Tidal Volume 400 Setting Ventilator Tidal Volume 400 Setting Ventilator Tidal Volume 400 Setting Ventilator Tidal Volume 400 Setting Ventilator Tidal Volume 400 Setting Ventilator Tidal Volume 400 Setting Ventilator Tidal Volume 400 Setting Ventilator Tidal Volume 400 Setting Ventilator Tidal Volume 400 Setting Ventilator Tidal Volume 400 Setting Ventilator Tidal Volume 400 Setting Ventilator Tidal Volume 400 Setting Ventilator Respiratory Rate 22 Setting Ventilator Respiratory Rate 22 Setting Ventilator Respiratory Rate 22 Setting Ventilator Respiratory Rate 22 Setting Ventilator Respiratory Rate 22 Setting Ventilator Respiratory Rate 22 Setting Ventilator Respiratory Rate 22 Setting Ventilator Respiratory Rate 22 Setting Ventilator Respiratory Rate 22 Setting Ventilator Respiratory Rate 22 Setting Ventilator Respiratory Rate 22 Setting Ventilator Respiratory Rate 22 Setting Actual Respiratory Rate 22 Actual Respiratory Rate 22 Actual Respiratory Rate 24 Actual Respiratory Rate 22 Actual Respiratory Rate 22 Actual Respiratory Rate 22 Actual Respiratory Rate 22 Actual Respiratory Rate 22 Actual Respiratory Rate 22 Actual Respiratory Rate 22 Actual Respiratory Rate 22 Actual Respiratory Rate 22 Positive End Expiratory 5 Pressure Positive End Expiratory 5 Pressure Positive End Expiratory 5 Pressure Positive End Expiratory 8 Pressure Positive End Expiratory 8 Pressure Positive End Expiratory 8 Pressure Positive End Expiratory 8 Pressure Positive End Expiratory 8 Pressure Positive End Expiratory 8 Pressure Positive End Expiratory 8 Pressure Positive End Expiratory 8 Pressure Positive End Expiratory 8 Pressure Peak Inspiratory Airway 21 Pressure Peak Inspiratory Airway 18 Pressure Peak Inspiratory Airway 19 Pressure Peak Inspiratory Airway 21 Pressure Peak Inspiratory Airway 21 Pressure Peak Inspiratory Airway 22 Pressure Peak Inspiratory Airway 22 Pressure Peak Inspiratory Airway 22 Pressure Peak Inspiratory Airway 21 Pressure Peak Inspiratory Airway 24 Pressure Peak Inspiratory Airway 23 Pressure Peak Inspiratory Airway 21 Pressure Results - Laboratory Findings CBC and BMP: 05/04/17 04:11 05/04/17 04:11 ABG ABG pH 7.27 pH Units (7.32-7.45) L 05/04/17 04:56 ABG pCO2 43 mmHg (35-45) 05/04/17 04:56 ABG pO2 244 mmHg (85-104) H 05/04/17 04:56 ABG O2 Saturation 100 % (95-98) H 05/04/17 04:56 PT/INR, D-dimer PT 13.4 Seconds (9.4-12.1) H 05/03/17 14:12 Abnormal lab findings: Abnormal lab results WBC 19.0 K/mcL (4.3-11.1) H D 05/04/17 04:11 Neutrophils # 17.9 K/mcL (1.6-8.9) H 05/04/17 04:11 Lymphocytes # 0.4 K/mcL (0.6-4.6) L 05/04/17 04:11 Reactive Lymphocytes Present (Not Present) A 05/04/17 04:11 Smudge Cells Present (Not Present) A 05/04/17 04:11 Toxic Granulation Present (Not Present) A 05/04/17 04:11 Toxic Vacuolation Present (Not Present) A 05/04/17 04:11 PT 13.4 Seconds (9.4-12.1) H 05/03/17 14:12 APTT 51.3 Seconds (26.0-36.0) H D 05/04/17 11:42 ABG pH 7.27 pH Units (7.32-7.45) L 05/04/17 04:56 ABG pO2 244 mmHg (85-104) H 05/04/17 04:56 ABG HCO3 20 mEq/L (21-27) L 05/04/17 04:56 ABG O2 Saturation 100 % (95-98) H 05/04/17 04:56 ABG Base Excess -7 mEq/L (-2 to 3) L 05/04/17 04:56 VBG pH 7.18 pH Units (7.32-7.42) L* 05/04/17 04:31 VBG pCO2 54 mmHg (41-51) H 05/03/17 21:39 VBG pO2 212 mmHg (25-50) H 05/03/17 21:39 VBG HCO3 19 mEq/L (21-27) L 05/03/17 21:39 Sodium 127 mEq/L (136-145) L 05/04/17 04:11 Chloride 96 mEq/L (98-107) L 05/04/17 04:11 Carbon Dioxide 20 mEq/L (23-29) L 05/04/17 04:11 BUN 29 mg/dL (8-23) H 05/04/17 04:11 Creatinine 2.01 mg/dL (0.60-1.20) H 05/04/17 04:11 Est GFR ( Amer) 28 (> 60) L 05/04/17 04:11 Est GFR (Non-Af Amer) 23 (> 60) L 05/04/17 04:11 Glucose 184 mg/dL (70-105) H 05/04/17 04:11 Calculated Osmolality 275 (280-300) L 05/04/17 04:11 Lactic Acid 2.3 mmol/L (0.5-2.2) H 05/04/17 08:11 Calcium 7.8 mg/dL (8.6-10.3) L 05/04/17 04:11 Venous Ioniz Calcium 1.02 mmol/L (1.15-1.35) L 05/04/17 04:31 Phosphorus 5.0 mg/dL (2.7-4.5) H 05/04/17 04:11 Troponin I 1.47 ng/mL (< 0.04) H* 05/03/17 23:50 B-Natriuretic Peptide 4486 pg/mL (Less than 100) H 05/03/17 14:19 TSH 6.115 mcIU/mL (0.340-5.600) H 05/03/17 14:19 Urine Clarity Turbid (Clear) A 05/03/17 15:12 Urine Protein 100 mg/dL (Neg-Trace) H 05/03/17 15:12 Urine Blood Large (Negative) H 05/03/17 15:12 Ur Leukocyte Esterase Moderate (Negative) H 05/03/17 15:12 Urine Microscopic RBC 30-50 per hpf (0-3) H 05/03/17 15:12 Urine Microscopic WBC TNTC per hpf (0-3) H 05/03/17 15:12 Ur Squamous Epith Cells Many per lpf (None-Few) H 05/03/17 15:12 Urine Bacteria Many per hpf (None-Few) H 05/03/17 15:12 Vancomycin Trough 21.3 mcg/mL (10-20) H* 05/05/17 04:00 Influenza A (H3) PCR DETECTED (Not Detect) A 05/03/17 20:57 - Clinical Findings Intake & Output: Intake & Output 05/04/17 05/05/17 05/05/17 23:59 07:59 15:59 Intake Total 236 / 236 454 / 454 Output Total 150 / 150 50 / 50 Balance 86 / 86 404 / 404 Weight 58.2 kg Consult Discharge Plan - Plan Referrals: Paco Louise Jr, MD [Primary Care Provider] -
[2017-05-05] MEDS ORDERED: Vancomycin 1 EACH in EMPTY BAG 1 EACH IVPB SCH (09:00)
--- NOTE | 2017-05-05 09:29 | Electrocardiograph Report ---
[address] [place], [place] [address] Test Date: 2017-05-03 Pat Name: Sadiq Hewitt Department: 109 Room: [facility] Gender: F Sales Floor Associate: SEVERIANO : 1930 Requested By: Scar Doshi Order Number: [id number] Reading MD: Jacquelyn Yeager Measurements Intervals [place] Rate: 51 P: 85 OK: 158 QRS: 261 QRSD: 160 T: 151 QT: 570 QTc: 545 Interpretive Statements SINUS BRADYCARDIA INDETERMINATE AXIS LEFT BUNDLE BRANCH BLOCK MARKED ST ELEVATION, CONSIDER SEPTAL INJURY ACUTE SC Electronically Signed On 05-05-2017 9:27:58 EST by Jacquelyn Yeager
--- NOTE | 2017-05-05 10:00 | Palliative Progress Note ---
Date of Encounter: 05/05/17 Time of Encounter: 09:50 - Assessment and plan (1) Generalized pain Current Visit: Yes Status: Acute Assessment and plan: Continues with Fentanyl drip per ICU protocol. Continue until pt is liberated from ventilator. Will adjust meds for comfort at that time. (2) Counseling regarding advanced care planning and goals of care Current Visit: Yes Status: Acute Assessment and plan: Family expected in today around noon, anticipate compassionate extubation and transition to comfort care. (3) Acute respiratory failure with hypoxia and hypercapnia Current Visit: Yes Status: Acute (4) Community acquired pneumonia Current Visit: Yes Status: Acute Qualifiers: Laterality: unspecified laterality Qualified Code(s): J18.9 - Pneumonia, unspecified organism (5) Systolic CHF Current Visit: Yes Status: Acute Qualifiers: Congestive heart failure chronicity: acute on chronic Qualified Code(s): I50.23 - Acute on chronic systolic (congestive) heart failure - Time Spent With Patient Total time spent is greater than 50% in coordination of care (as documented) at patient's floor/unit and/or counseling patient: - Subjective Interval history: Neurological status unchanged, remains with myoclonic jerking, does not respond to verbal/tactile stimuli and doesn't follow commands. No family currently at bedside. - Constitutional Vitals: Abnormal lab results WBC 19.0 K/mcL (4.3-11.1) H D 05/04/17 04:11 Neutrophils # 17.9 K/mcL (1.6-8.9) H 05/04/17 04:11 Lymphocytes # 0.4 K/mcL (0.6-4.6) L 05/04/17 04:11 Reactive Lymphocytes Present (Not Present) A 05/04/17 04:11 Smudge Cells Present (Not Present) A 05/04/17 04:11 Toxic Granulation Present (Not Present) A 05/04/17 04:11 Toxic Vacuolation Present (Not Present) A 05/04/17 04:11 PT 13.4 Seconds (9.4-12.1) H 05/03/17 14:12 APTT 51.3 Seconds (26.0-36.0) H D 05/04/17 11:42 ABG pH 7.27 pH Units (7.32-7.45) L 05/04/17 04:56 ABG pO2 244 mmHg (85-104) H 05/04/17 04:56 ABG HCO3 20 mEq/L (21-27) L 05/04/17 04:56 ABG O2 Saturation 100 % (95-98) H 05/04/17 04:56 ABG Base Excess -7 mEq/L (-2 to 3) L 05/04/17 04:56 VBG pH 7.18 pH Units (7.32-7.42) L* 05/04/17 04:31 VBG pCO2 54 mmHg (41-51) H 05/03/17 21:39 VBG pO2 212 mmHg (25-50) H 05/03/17 21:39 VBG HCO3 19 mEq/L (21-27) L 05/03/17 21:39 Sodium 127 mEq/L (136-145) L 05/04/17 04:11 Chloride 96 mEq/L (98-107) L 05/04/17 04:11 Carbon Dioxide 20 mEq/L (23-29) L 05/04/17 04:11 BUN 29 mg/dL (8-23) H 05/04/17 04:11 Creatinine 2.01 mg/dL (0.60-1.20) H 05/04/17 04:11 Est GFR ( Amer) 28 (> 60) L 05/04/17 04:11 Est GFR (Non-Af Amer) 23 (> 60) L 05/04/17 04:11 Glucose 184 mg/dL (70-105) H 05/04/17 04:11 Calculated Osmolality 275 (280-300) L 05/04/17 04:11 Lactic Acid 2.3 mmol/L (0.5-2.2) H 05/04/17 08:11 Calcium 7.8 mg/dL (8.6-10.3) L 05/04/17 04:11 Venous Ioniz Calcium 1.02 mmol/L (1.15-1.35) L 05/04/17 04:31 Phosphorus 5.0 mg/dL (2.7-4.5) H 05/04/17 04:11 Troponin I 1.47 ng/mL (< 0.04) H* 05/03/17 23:50 B-Natriuretic Peptide 4486 pg/mL (Less than 100) H 05/03/17 14:19 TSH 6.115 mcIU/mL (0.340-5.600) H 05/03/17 14:19 Urine Clarity Turbid (Clear) A 05/03/17 15:12 Urine Protein 100 mg/dL (Neg-Trace) H 05/03/17 15:12 Urine Blood Large (Negative) H 05/03/17 15:12 Ur Leukocyte Esterase Moderate (Negative) H 05/03/17 15:12 Urine Microscopic RBC 30-50 per hpf (0-3) H 05/03/17 15:12 Urine Microscopic WBC TNTC per hpf (0-3) H 05/03/17 15:12 Ur Squamous Epith Cells Many per lpf (None-Few) H 05/03/17 15:12 Urine Bacteria Many per hpf (None-Few) H 05/03/17 15:12 Vancomycin Trough 21.3 mcg/mL (10-20) H* 05/05/17 04:00 Influenza A (H3) PCR DETECTED (Not Detect) A 05/03/17 20:57 General appearance: Present: no acute distress - Respiratory Respiratory exam: Present: decreased breath sounds, CTAB - Cardiovascular Cardiovascular exam: Present: +S1, +S2 - GI/Abdominal GI/Abdominal exam: Present: normal bowel sounds, soft - Extremities Exam Extremities exam: Present: normal capillary refill, normal inspection - Neurological Exam Additional comments: Myclonic jerking, no response to verbal/tactile stimuli. - Skin Skin exam: Present: dry, pallor, warm Palliative Quality Palliative Quality: Screen for Code Status: Yes, Screen for Goals of Care: Yes, Screen for Pain: Yes, If Pain Regimen Started, Initiate Bowel Regimen: NA, Screen for Nausea/Vomitting: Yes Code Status: 05/03/17 17:10 Resuscitation Status: Active [RES] Routine Comment: Resuscitation Status: Full Code 05/03/17 19:57 CODE [Resuscitation Status: Active] [RES] Routine Comment: Resuscitation Status: DNR-Comfort Care-Arrest - Labs CBC & Chem 7: 05/04/17 04:11 05/04/17 04:11 Labs: Laboratory Results - last 24 hr 05/04/17 05/04/17 05/05/17 11:13 11:42 04:00 APTT 51.3 H D POC Glucose 85 Vancomycin Trough 21.3 H* - ABG Interpretation ABG results: ABG ABG pH 7.27 pH Units (7.32-7.45) L 05/04/17 04:56 ABG pCO2 43 mmHg (35-45) 05/04/17 04:56 ABG pO2 244 mmHg (85-104) H 05/04/17 04:56 ABG O2 Saturation 100 % (95-98) H 05/04/17 04:56 PT/INR, D-dimer PT 13.4 Seconds (9.4-12.1) H 05/03/17 14:12 Consult Discharge Plan - Plan Referrals: Paco Louise Jr, MD [Primary Care Provider] -
[2017-05-05] MEDS ORDERED: Aminoglycoside Consult 1 EACH MC ONE (12:52)
[2017-05-05] MEDS ORDERED: *HR* Midazolam HCl 2 MG/2 ML VIAL IVP PRN ×2 (13:02→16:56)
[2017-05-05] MEDS ORDERED: *HR* LORazepam 2 MG/ML VIAL IVP PRN ×2 (14:57→16:56)
[2017-05-05] MEDS ORDERED: Atropine Sulfate 1% 40 DROP/2 ML BOTTLE SL PRN (14:57)
[2017-05-05] MEDS ORDERED: *HR* Morphine 2 MG/ML SYRINGE IVP PRN ×2 (15:02→16:56)
--- NOTE | 2017-05-05 15:50 | Event Note ---
Date of Encounter: 05/05/17 Time of Encounter: 15:40 Patient family all at bedside and ready for pt to be liberated from the ventilator. She was extubated - appears comfortable. Shallow irregular respirations noted. Emotional and spiritual support provided. Gerald Sales - pastoral care at bedside.
[2017-05-05] MEDS: FentaNYL (PF) 1,000 MCG in 0.9 % Sodium Chloride 80 ML IVC SCH ×2 (16:08→17:30)
[2017-05-05] MEDS: Propofol 500 MG/50 ML INFUS..BTL IVC SCH (18:11)
[2017-05-05] MEDS ORDERED: 0.9 % Sodium Chloride 250 ML ONE (19:23)
[2017-05-05] MEDS: Atropine Sulfate 1% 40 DROP/2 ML BOTTLE SL PRN (20:52)
[2017-05-06] MEDS: Atropine Sulfate 1% 40 DROP/2 ML BOTTLE SL PRN ×12 (00:08→23:32)
[2017-05-06] MEDS ORDERED: 0.9 % Sodium Chloride 250 ML ONE ×2 (07:33→20:22)
[2017-05-06] MEDS ORDERED: Scopolamine Patch 1.5 MG PATCH.TD72 TD ONE (09:47)
[2017-05-06] MEDS: FentaNYL (PF) 1,000 MCG in 0.9 % Sodium Chloride 80 ML IVC SCH (13:18)
--- NOTE | 2017-05-06 15:12 | Internal Med Progress Note ---
Date of Encounter: 05/06/17 Time of Encounter: 08:50 - Assessment and plan (1) Counseling regarding advanced care planning and goals of care Current Visit: Yes Status: Acute Assessment and plan: Patient is currently under comfort care, being followed by palliative team Ativan, Versed, Morphine orders in place for comfort measures Not in any distress, shallow respirations (2) Acute respiratory failure with hypoxia and hypercapnia Current Visit: Yes Status: Acute Assessment and plan: Acute hypoxic and hypercapnic respiratory failure secondary to community- acquired pneumonia and acute CHF (3) Cardiogenic shock Current Visit: Yes Status: Acute Assessment and plan: Status post cardiac arrest with evidence of severe anoxic brain injury (4) Anoxic brain damage Current Visit: Yes Status: Acute Assessment and plan: 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 Being followed by palliative team. Patient appears comfortable. She does have shallow respirations. No family members at bedside at this time. Patient is on Morphine, Versed and Ativan as needed for comfort measures. Patient initially admitted for acute hypoxic and hypercapnic respiratory failure secondary to acute CHF, community-acquired pneumonia. Patient also had cardiogenic shock with probable anoxic brain injury. Family decided for comfort care. Patient is a DO NOT RESUSCITATE and Comfort Care only. - Constitutional Vitals: Temp Pulse Resp BP Pulse Ox 97.7 F 101 13 114/75 94 05/06/17 07:42 05/06/17 07:42 05/06/17 07:42 05/06/17 07:42 05/06/17 07:42 Exam: No acute distress, patient is not responsive, shallow respirations - Head Head exam: Present: atraumatic - ENT ENT exam: Present: mucous membranes dry - Respiratory Respiratory exam: Present: rhonchi (Mild bilateral), wheezes (Mild bilateral) Additional comments: Shallow respirations - Cardiovascular Cardiovascular exam: Present: +S1, +S2, tachycardia - Extremities Exam Extremities exam: Absent: pedal edema - Neurological Exam Additional comments: No response to verbal/tactile stimuli Internal Medicine: Result - Labs CBC & Chem 7: 05/04/17 04:11 05/04/17 04:11 - ABG Interpretation ABG results: ABG ABG pH 7.27 pH Units (7.32-7.45) L 05/04/17 04:56 ABG pCO2 43 mmHg (35-45) 05/04/17 04:56 ABG pO2 244 mmHg (85-104) H 05/04/17 04:56 ABG O2 Saturation 100 % (95-98) H 05/04/17 04:56 PT/INR, D-dimer PT 13.4 Seconds (9.4-12.1) H 05/03/17 14:12 Consult Discharge Plan - Plan Referrals: Paco Louise Jr, MD [Primary Care Provider] -
[2017-05-07] MEDS: Atropine Sulfate 1% 40 DROP/2 ML BOTTLE SL PRN ×4 (02:35→07:26)
[2017-05-07 08:25] VITALS: BP 92/59
--- NOTE | 2017-05-07 08:35 | Death Note ---
Pronouncement Note - Date and Time of Date of : 05/07/17 Time of : 08:27 - PCOD Preliminary cause of : Cardiac arrest - Summary Additional details: Exmained patient this morning. She was unrepsonsive. No heart sounds and no breath sounds. Examined by myself and RN. Pronounced at 08:27 am. Family has been informed. - Additional Data Confirmation of : no pulse, no respirations, no heart sounds, pupils fixed and dilated Family: contacted Attending physician: Scar Doshi MD Was code activated?: No Autopsy requested?: No Organ bank notified?: Yes Advance directives: Yes
--- NOTE | 2017-05-07 12:44 | Death Note ---
Discharge Sum: Summary - Date and Time Date of admission: 05/03/17 17:01 Date of : 05/07/17 Time of : 08:27 - Summary Details: Patient is a 86-year-old female with past medical history of nonischemic cardiomyopathy with EF of 20-25%, CAD, LBBB and hypertension. Patient was admitted for acute hypercapnic hypoxic respiratory failure secondary to community-acquired pneumonia. Patient was also diagnosed with acute encephalopathy, severe sepsis with troponin elevation. She was initially found to be hypoxic and required intubation. Patient was tachycardic with LBBB and there was attempted synchronized and unsynchronized cardioversion. Patient was also initially started on amiodarone drip. Patient was admitted to the ICU. Initially started on vancomycin and Zosyn and Levaquin and then D escalated to Rocephin and azithromycin. Lactic acid was elevated. CT of the chest did show multifocal consolidations in both lungs. Cultures did not show any growth. Patient was found hypotensive and was also desaturating and required CPR after her admission. She required epinephrine and Levaquin drip. Patient did require defibrillation 1. She was then in sinus rhythm. Patient was given sodium bicarbonate. The on-call physician discussed with the patient's family regarding poor prognosis and CODE STATUS was then changed to DNR comfort care arrest. Palliative care was consulted. It was decided that patient will be transitioned to comfort measures. Patient had a EEG which showed presence of burst suppression with minimal reactivity which is indicative of severe axonal injury with poor neurological prognosis. Neurology has also evaluated the patient. Patient was then transferred to palliative care after extubation. Comfort measures were ordered by palliative care. Patient was on fentanyl drip and also on morphine and Versed and Ativan. On 05/07/2017 at 8:27 a.m. patient was pronounced. She did not have heart sounds or breath sounds and her pupils were fixed and dilated. Family was informed and condolences offered. - Additional Data Confirmation of as documented by pronouncing clinician: no pulse, no respirations, no heart sounds, pupils fixed and dilated Family: contacted Attending physician: Scar Doshi MD Was code activated?: No Organ bank notified?: Yes Advance directives: Yes Hospice patient?: Yes Discharge Sum: Diag - PCOD Probable Cause of : Cardiac arrest - Contributing Factors (1) Acute respiratory failure with hypoxia and hypercapnia Secondary to cardiogenic and noncardiogenic pulmonary edema complicated by influenza Patient was on ventilator support, eventually CODE STATUS was changed to DO NOT RESUSCITATE with terminal extubation (2) Cardiogenic shock Secondary to demand ischemia leading to reduced EF - patient was on vasopressor support (3) Anoxic brain damage EEG revealed burst suppression consistent with severe axonal injury Neurology had evaluated patient and stated that patient had a extremely poor neurological prognosis (4) Reduced ejection fraction concurrent with and due to acute on chronic heart failure Ejection fraction reduced from previous which is likely due to acute stress/ ischemia, cardiology evaluated patient (5) Severe sepsis Secondary to influenza, patient was treated with antimicrobials (6) Cardiac arrest Status post cardiac arrest with evidence of severe anoxic brain injury Discharge Sum: Prov - Provider Primary care physician: Paco Louise Jr, MD Admitting clinician: Scar Doshi Attending physician on admission: Scar Doshi Consults: 05/03/17 17:52 Consult to Pastoral Services [CONS] Routine Comment: Consult to Truck Packer [CONS] Routine Reason for SW Consult: currently on the vent. Lives with son. Independent. 05/04/17 08:09 Consult to Palliative Care [CONS] Routine Comment: Consulting Provider: Palliative Care Isa Reason for Consult: Goals of care, likely heading towards comfort care. Time Notified: 08:26 Call Completed: Yes 05/04/17 13:54 Consult to Neurology [CONS] Routine Consulting Provider: Neurology [facility] Reason for Consult: Weigh in on prognosis Call Completed: Yes 05/04/17 14:15 Consult to Interpret Exam [CONS] Routine Consulting Provider: Tyrone Jimenez Consult to Interpret Exam: Interpret EEG Pronouncing clinician: Gerard Mercado
== END 2017-05-07 12:53 | disposition expired | DRG 871 ==
LOC: EMEROO 13:38 → ICNU 17:01 → 2ANU 05-05 17:24
PROVIDERS: ADMIT Internal Medicine Hospice and Palliative Medicine; ATTEND Internal Medicine Hospice and Palliative Medicine